=== PATIENT | male | born 1955 | race Caucasian/White ===

== ENCOUNTER → 2017-03-20 | Outpatient (CLI) | payer BC ==
[~2017-03-20] MED LIST: ASPI1TAB83 PO; CHOL100010 PO; HYDUNK PO; LSN20 PO; MULT-506 PO; WARF2TAB PO
== END | disposition home or self-care (01) ==
LOC: C.RDSM 12:21
PROVIDERS: ATTEND Physical Medicine & Rehabilitation Sports Medicine
DX: Z96.651 Presence of right artificial knee joint (principal); M16.9 Osteoarthritis of hip, unspecified

== ENCOUNTER 2019-01-25 06:02 | Inpatient (IN) ==
[2019-01-25] MEDS ORDERED: METOPROLOL TARTRATE 1 MG/ML VIAL IV STA (06:46)
--- NOTE | 2019-01-25 06:55 | Emergency Department Note ---
Entered by Dylan Canales acting as a scribe for Ritchie Ulloa DO History of Present Illness General Chief complaint: Vertigo Stated complaint: DIZZY Time Seen by Provider: 01/25/19 06:29 Source: patient History of Present Illness Provider complaint: Chest pain Onset (ago): hour(s) (This morning) Location: chest Radiation: non-radiation Pain Consistency: + constant Maximum Pain Intensity: 4 Current Pain Intensity: 4 Quality: + other (Pressure) Relieved By: + none Exacerbated By: + none Associated symptoms: + other (Positive fatigue ); no shortness of breath The patient is a 63 year old male who presents to the Emergency Room with complaints of constant chest pressure that he first noticed this morning just prior to arrival. The patient describes his symptoms as a pressure and rates it a 4/10. 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 While out in the direct sunlight, he experienced intermittent episodes of severe fatigue where he felt a drastic decrease in energy. He states that he had to sit down in the shade during these episodes but after doing so for a few minutes he felt normal again. The patient denies any shortness of breath as well as feeling as if his heart is beating irregularly. He does have a history of hypertension for which he takes Lisinopril and Hydrochlorothiazide. Home Medications Home Medications Medication Instructions Recorded Confirmed Type aspirin 81 mg PO QAM 07/04/18 01/25/19 History hydrochlorothiazide 25 mg PO QAM 07/04/18 01/25/19 History lisinopril 20 mg PO QAM 07/04/18 01/25/19 History multivitamin 1 tab PO QAM 07/04/18 01/25/19 History Allergies Allergy/AdvReac Type Severity Reaction Status Date / Time No Known Allergies Allergy Unknown Verified 01/25/19 06:28 Past Med/Surg History Medical History Hypertension Osteoarthritis Surgical History History of anesthesia reaction TACHYCARDIA History of carpal tunnel release BL History of colonoscopy History of elbow surgery History of herniorrhaphy UMBILICAL History of repair of rotator cuff History of tonsillectomy History of total hip arthroplasty RT History of total knee replacement BL Hx of vasectomy S/P cataract extraction and insertion of intraocular lens Left: 2mg of versed was given without apparent complications Social History Preferred Language: Liberian Communication Ability: Effective Beliefs That Will Affect Care: None Current Living Situation: Spouse Feels Safe at Home: Yes Smoking Status: Never smoker Second Hand Exposure: No Hx Alcohol Use: No Hx Substance Use: No Review of Systems See HPI for pertinent positives & negatives. and A total of 10 systems reviewed and were otherwise negative Physical Exam Vital Signs Vital Signs - 24 hr 01/25/19 06:05 01/25/19 06:20 01/25/19 06:46 Temperature 36.5 C Temperature Source Oral Sepsis Recent Fever Within 48 Hours No Sepsis New/Unexplained Change in Mental Status No Sepsis Action Taken by Nursing No Action Required Pulse Rate 91 H Pulse Rate [Apical] Pulse Rhythm [Apical] Pulse Strength [Apical] Respiratory Rate 16 Respiratory Depth Blood Pressure 149/69 H Blood Pressure [Right Arm] Blood Pressure Mean 95 Blood Pressure Mean [Right Arm] Blood Pressure Position [Right Arm] Pulse Oximetry 98 98 97 Oxygen Delivery Method Room Air Room Air Room Air 01/25/19 07:00 01/25/19 07:04 01/25/19 07:16 Temperature Temperature Source Sepsis Recent Fever Within 48 Hours Sepsis New/Unexplained Change in Mental Status Sepsis Action Taken by Nursing Pulse Rate 96 H Pulse Rate [Apical] 90 Pulse Rhythm [Apical] Irregular Pulse Strength [Apical] Normal Respiratory Rate 19 Respiratory Depth Normal Blood Pressure 131/88 Blood Pressure [Right Arm] 131/88 Blood Pressure Mean Blood Pressure Mean [Right Arm] 102 Blood Pressure Position [Right Arm] Lying Pulse Oximetry 95 97 Oxygen Delivery Method Room Air Room Air CONSTITUTIONAL/VITAL SIGNS: Reviewed / noted above. GENERAL: Non-toxic in appearance. INTEGUMENTARY: Warm, dry, and [place]. HEAD: Normocephalic. EYES: without scleral icterus or trauma. ENT/OROPHARYNX: clear and moist. LYMPHADENOPATHY/NECK: Is supple without lymphadenopathy or meningismus. RESPIRATORY: Lungs clear and equal. CARDIOVASCULAR: Regular rate and irregular rhythm. GI/ABDOMEN: Soft and nontender. No organomegaly or pulsatile mass. No rebound or guarding. Normal bowel sounds. EXTREMITIES: Warm and well perfused. BACK: No CVA tenderness. NEUROLOGICAL: Intact without focal deficits. PSYCHIATRIC: normal affect. MUSCULOSKELETAL: Normally developed with good muscle tone. Course 0642: The patient was evaluated in room A02, and a complete history and physical examination were performed. 0725: I reevaluated the patient and updated him on results. I also updated him on the treatment plan and he is agreeable. 0728: I spoke to Lakeisha Freeman PA-C, under Dr. Momo Lynch, about the patient's case. They will be accepting the patient. Consultations Consultation #1: I spoke to Lakeisha Freeman PA-C, under Dr. Momo Lynch, about the patient's case. They will be accepting the patient. Time: 07:28 Administered Medications Heparin Sodium/Dextrose (Heparin Sodium/Dextrose) 25,000 units in 500 mls @ 35 mls/hr IV .[id number] [facility]; Protocol Stop: 02/24/19 07:44 Last Admin: 01/25/19 07:39 Dose: 1,750 units/hr, 35 mls/hr Documented by: [id number] Cosigned by: [id number] Discontinued Medications Aspirin (Aspirin) 324 mg PO NOW STA Stop: 01/25/19 07:25 Last Admin: 01/25/19 07:38 Dose: 324 mg Documented by: [id number] Aspirin (Aspirin Chew) Confirm Administered Dose 324 mg .ROUTE .STK-MED ONE Stop: 01/25/19 07:35 Last Admin: 01/25/19 07:50 Dose: Not Given Documented by: [id number] Heparin Sodium (Porcine) (Heparin Iv Bolus) 8,000 units IV NOW ONE Stop: 01/25/19 07:46 Last Admin: 01/25/19 07:39 Dose: 8,000 units Documented by: [id number] Cosigned by: [id number] Heparin Sodium (Porcine) (Heparin Sodium (Porcine)) Confirm Administered Dose 1 0,000 units .ROUTE .STK-MED ONE Stop: 01/25/19 07:34 Last Admin: 01/25/19 07:50 Dose: Not Given Documented by: [id number] Heparin Sodium/Dextrose () 1 ea IV NOW STA; Protocol Stop: 01/25/19 07:25 Last Admin: 01/25/19 07:50 Dose: Not Given Documented by: [id number] Heparin Sodium/Dextrose (Heparin Sodium/Dextrose) Confirm Administered Dose 25,000 units IV .STK-MED ONE Stop: 01/25/19 07:34 Last Admin: 01/25/19 07:50 Dose: Not Given Documented by: [id number] Sodium Chloride (Nss) 500 mls @ 999 mls/hr IV .Q31M [place] Stop: 01/25/19 07:30 Last Infusion: 01/25/19 07:50 Dose: 0 mls/hr Documented by: [id number] Admin: 01/25/19 07:17 Dose: 999 mls/hr Documented by: [id number] Metoprolol Tartrate (Lopressor) 5 mg IV NOW STA Stop: 01/25/19 06:47 Last Admin: 01/25/19 07:16 Dose: 5 mg Documented by: [id number] Medical Decision Making Differential Diagnosis Differential diagnoses includes but is not limited to acute coronary syndrome, myocardial infarction, pericarditis, pulmonary embolus, aortic dissection, pneumonia, pneumothorax, musculoskeletal, shingles, esophageal. Medical Records Attestation: I reviewed the patient's medical records. Home Medications Current Medication List: was personally reviewed by me Laboratory Data Attestation: I reviewed the patient's lab results. Result diagrams: 01/25/19 06:20 01/25/19 06:20 Lab Results 01/25/19 01/25/19 01/25/19 Range/Units 06:20 06:20 06:20 WBC 6.52 (4.8-10.8) K/uL RBC 5.03 (4.7-6.1) M/uL Hgb 15.0 (14.0-18.0) g/dL Hct 42.3 (42-52) % MCV 84.1 (80-100) fL MCH 29.8 (25-34) pg MCHC 35.5 (32-36) g/dL RDW Std Deviation 42.8 (36.4-46.3) fL RDW Coeff of Shaq 14.0 (11.5-14.5) % Plt Count 167 (130-400) K/uL MPV 10.4 (7.4-10.4) fL Immature Gran % (Auto) 0.5 % Neut % (Auto) 63.8 % Lymph % (Auto) 23.2 % [place] % (Auto) 9.4 % Eos % (Auto) 2.8 % Baso % (Auto) 0.3 % Immature Gran # (Auto) 0.03 H (0.00-0.02) K/uL Neut # (Auto) 4.17 (1.4-6.5) K/uL Lymph # (Auto) 1.51 (1.2-3.4) K/uL [place] # (Auto) 0.61 H (0.11-0.59) K/uL Eos # (Auto) 0.18 (0-0.5) K/uL Baso # (Auto) 0.02 (0-0.2) K/uL PT 10.8 (9.0-12.0) Seconds INR 1.1 (0.9-1.1) APTT 28.6 (21.0-31.0) Seconds PTT Ratio 1.1 Sodium 138 (136-145) mmol/L Potassium 3.9 (3.5-5.1) mmol/L Chloride 103 (98-107) mmol/L Carbon Dioxide 25 (21-32) mmol/L Anion Gap 9.0 (3-11) BUN 21 H (7-18) mg/dl Creatinine 1.09 (0.6-1.4) mg/dl Est Cr Clr Drug Dosing 95.7 ml/min Est GFR ( Amer) 83.9 Est GFR (Non-Af Amer) 72.4 BUN/Creatinine Ratio 18.9 (10-20) Glucose 111 H (70-99) mg/dl Calcium 9.3 (8.5-10.1) mg/dl Total Bilirubin 0.8 (0.2-1) mg/dl AST 29 (15-37) U/L ALT 40 (12-78) U/L Alkaline Phosphatase 57 (45-117) U/L Total Creatine Kinase 632 H (39-308) U/L CK-MB (CK-2) 6.5 H (0.5-3.6) ng/ml CK/CKMB % Calc 1.0 (0-3.0) Troponin I 0.068 H* (0-0.045) ng/ml Total Protein 6.7 (6.4-8.2) gm/dl Albumin 3.9 (3.4-5.0) gm/dl Globulin 2.8 (2.5-4.0) gm/dl Albumin/Globulin Ratio 1.4 (0.9-2) TSH 1.280 (0.300-4.500) uIu/ml Lyme Disease IgG Ab (Negative) Lyme Disease IgM Ab (Negative) 01/25/19 Range/Units 06:20 WBC (4.8-10.8) K/uL RBC (4.7-6.1) M/uL Hgb (14.0-18.0) g/dL Hct (42-52) % MCV (80-100) fL MCH (25-34) pg MCHC (32-36) g/dL RDW Std Deviation (36.4-46.3) fL RDW Coeff of Shaq (11.5-14.5) % Plt Count (130-400) K/uL MPV (7.4-10.4) fL Immature Gran % (Auto) % Neut % (Auto) % Lymph % (Auto) % [place] % (Auto) % Eos % (Auto) % Baso % (Auto) % Immature Gran # (Auto) (0.00-0.02) K/uL Neut # (Auto) (1.4-6.5) K/uL Lymph # (Auto) (1.2-3.4) K/uL [place] # (Auto) (0.11-0.59) K/uL Eos # (Auto) (0-0.5) K/uL Baso # (Auto) (0-0.2) K/uL PT (9.0-12.0) Seconds INR (0.9-1.1) APTT (21.0-31.0) Seconds PTT Ratio Sodium (136-145) mmol/L Potassium (3.5-5.1) mmol/L Chloride (98-107) mmol/L Carbon Dioxide (21-32) mmol/L Anion Gap (3-11) BUN (7-18) mg/dl Creatinine (0.6-1.4) mg/dl Est Cr Clr Drug Dosing ml/min Est GFR ( Amer) Est GFR (Non-Af Amer) BUN/Creatinine Ratio (10-20) Glucose (70-99) mg/dl Calcium (8.5-10.1) mg/dl Total Bilirubin (0.2-1) mg/dl AST (15-37) U/L ALT (12-78) U/L Alkaline Phosphatase (45-117) U/L Total Creatine Kinase (39-308) U/L CK-MB (CK-2) (0.5-3.6) ng/ml CK/CKMB % Calc (0-3.0) Troponin I (0-0.045) ng/ml Total Protein (6.4-8.2) gm/dl Albumin (3.4-5.0) gm/dl Globulin (2.5-4.0) gm/dl Albumin/Globulin Ratio (0.9-2) TSH (0.300-4.500) uIu/ml Lyme Disease IgG Ab Negative (Negative) Lyme Disease IgM Ab Negative (Negative) Imaging Data Radiologist's Impression: Radiology results as stated below per my review and the radiologist's interpretation: XR chest 1V portable CLINICAL HISTORY: Chest Pain discussion COMPARISON STUDY: 05/22/2014 FINDINGS: Mild cardiomegaly. The lungs are clear. Diaphragms are smooth. IMPRESSION: Mild cardiomegaly. The above report was generated using voice recognition software. It may contain grammatical, syntax or spelling errors. Electronically signed by: Christian Chaney M.D. 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 The patient also describes some pressure in his chest this morning. He described as a light pressure. He states that he has been having some increased fatigue and tiredness worked in the heat. The patient denies any palpitations. He does take lisinopril and hydrochlorothiazide for hypertension. He denies having any history of A. fib. His initial EKG here reveals A. fib at a rate of 110. His blood pressure is stable and his vital signs are otherwise stable. He is afebrile. Physical exam was unremarkable other than the irre gular pulse. He is in no distress. The patient's EKG shows A. fib with a rate of 110. No ST elevation or ectopy. CBC is normal. BUN is 21. Troponin is elevated at 0.068. TSH was normal. Lyme test was pending. The patient was treated with IV Lopressor 5 mg. He was given 500 cc normal saline bolus. He was ordered aspirin p.o. and heparin IV with bolus and drip. I spoke with Lakeisha from [facility]. The patient will be admitted for further inpatient evaluation and care. The patient remained stable during his ED stay and was without any symptoms. Impression & Plan New onset a-fib, Non-ST elevation NC (NSTEMI), Acute dehydration Critical Care Time Critical Care Time: Yes Total Critical Care Time: 35 I have personally spent greater than 35 minutes of critical care time in the direct management of this patient. This includes bedside care, interpretation of diagnostic studies, and testing, discussion with consultants, patient, and family members, and other required patient management activities. This 35 minutes is in excess of all separately billable procedures. Discharge Plan Visit Data Chief Complaint: Vertigo Stated Complaint: DIZZY ED Provider: Ritchie Ulloa Discharge Problem: New onset a-fib, Non-ST elevation NC (NSTEMI), Acute dehydration Patient Disposition: Being Evaluated by Hospitalist Condition: Good Forms Stand Alone Forms: My [facility], Important Visit Information Prescriptions Prescriptions: No Action multivitamin Tablet 1 tab PO QAM RF: 0 lisinopril 20 mg Tablet 20 mg PO QAM RF: 0 aspirin 81 mg Tablet,Delayed Release (Dr/Ec) 81 mg PO QAM RF: 0 hydrochlorothiazide 25 mg Tablet 25 mg PO QAM RF: 0 Referrals Referrals: Christian Archer MD [Primary Care Provider] - The scribe's documentation has been prepared under my direction and personally reviewed by me in its entirety. I confirm that the note above accurately reflects all work, treatment, procedures, and medical decision making performed by me.
[2019-01-25 07:00] LABS: Basophils # (auto) 0.02 K/uL (0-0.2); Basophils % (auto) 0.3 %; Eosinophils # (auto) 0.18 K/uL (0-0.5); Eosinophils % (auto) 2.8 %; Hematocrit (blood only) 42.3 % (42-52); Immature Granulocytes # (auto) 0.03 K/uL (0.00-0.02); Immature Granulocytes % (auto) 0.5 %; Lymphocytes # (auto) 1.51 K/uL (1.2-3.4); Lymphocytes % (auto) 23.2 %; Mean Corpuscular Hgb Conc 35.5 g/dL (32-36); Mean Corpuscular Volume 84.1 fL (80-100); Mean Platelet Volume 10.4 fL (7.4-10.4); Monocytes # (auto) 0.61 K/uL (0.11-0.59); Monocytes % (auto) 9.4 %; Neutrophils # (auto) 4.17 K/uL (1.4-6.5); Neutrophils % (auto) 63.8 %; Platelet Count 167 K/uL (130-400); RDW Standard Deviation 42.8 fL (36.4-46.3); Red Blood Count 5.03 M/uL (4.7-6.1); White Blood Count 6.52 K/uL (4.8-10.8)
[2019-01-25] MEDS ORDERED: SODIUM CHLORIDE 0.9% 500 ML IV SCH (07:00)
[2019-01-25 07:07] LABS: Albumin Level 3.9 gm/dl (3.4-5.0); BUN Creatinine Ratio 18.9 (10-20); Calcium 9.3 mg/dl (8.5-10.1); Creatinine Clr Calc Pharmacy 95.7 ml/min; Est GFR (African American) 83.9; Est GFR (Non-African American) 72.4; Potassium 3.9 mmol/L (3.5-5.1)
[2019-01-25 07:13] LABS: INR 1.1 (0.9-1.1); Partial Thromboplastin Ratio 1.1; Partial Thromboplastin Time 28.6 Seconds (21.0-31.0); Prothrombin Time 10.8 Seconds (9.0-12.0)
[2019-01-25 07:19] LABS: Albumin Globulin Ratio 1.4 (0.9-2); Bilirubin,Total 0.8 mg/dl (0.2-1); Creatine Kinase MB 6.5 ng/ml (0.5-3.6); Globulin 2.8 gm/dl (2.5-4.0); Total Protein 6.7 gm/dl (6.4-8.2); Troponin I 0.068 ng/ml (0-0.045)
[2019-01-25] MEDS ORDERED: ASPIRIN CHEW 324 MG PO STA (07:24)
[2019-01-25 07:31] LABS: Lyme Ab IgG w/WB Rflx Negative (Negative); Lyme Ab IgM w/WB Rflx Negative (Negative)
[2019-01-25] MEDS ORDERED: HEPARIN SOD 5,000 UNIT/0.5 ML VIAL ONE (07:33)
[2019-01-25] MEDS ORDERED: HEPARIN 25000 UNIT/500 ML D5W IV ONE (07:33)
[2019-01-25] MEDS ORDERED: ASPIRIN 81 MG CHEW ONE (07:34)
--- NOTE | 2019-01-25 07:37 | XRay Report ---
XR chest 1V portable CLINICAL HISTORY: Chest Pain discussion COMPARISON STUDY: 05/22/2014 FINDINGS: Mild cardiomegaly. The lungs are clear. Diaphragms are smooth. IMPRESSION: Mild cardiomegaly. The above report was generated using voice recognition software. It may contain grammatical, syntax or spelling errors. Electronically signed by: Christian Chaney M.D. 01/25/2019 7:36 AM
[2019-01-25] MEDS: Heparin Adult STANDARD Wt-Based Dextrose 5% 25,000 units/500 mL IV SCH ×2 (07:39→20:55)
[2019-01-25] MEDS ORDERED: Heparin BOLUS **ED Use Only IV ONE (07:45)
--- NOTE | 2019-01-25 09:08 | History & Physical Report ---
Date of Service January 25, 2019 Assessment & Plan (1) New onset a-fib: (2) Non-ST elevation DC (NSTEMI): This is a 63-year-old male who has a significant past medical history of HTN, HLD, DJD who presents to [facility] ED secondary to episodes of profound lightheadedness and weakness since yesterday at 11 AM. is at bedside. In ED patient was found to be in atrial fibrillation with RVR, heart rate 110. His troponin was elevated to 0.068. There were no ST or T wave changes on EKG. CK-MB and CK also elevated at 632 and 6.5 respectively. His TSH was WNL. CBC relatively unremarkable. BMP was significant for elevated BUN 21, creatinine 1.09. Lyme titer negative. In ED received IVF bolus, IV Lopressor 5mg which improved HR to 90s and initiated on IV heparin bolus/gtt admit to telemetry consult Cardiology Serial troponin x 3 Obtain echocardiogram Continue IV Heparin Start Lopressor 25mg po bid IV Lopressor 5mg PRN for HR > 110 continue IVF for mild renal insufficiency (3) Acute dehydration: mild dehydration baseline cr 0.9 bun/cr 21/1.09 today IVF with 20meq KCL 125 cc/hr x 2 L Hold HCTZ follow bmp (4) Hypertension: continue lisinopril hold HCTZ in setting of mild dehydration DVT Prophylaxis: On IV Heparin Disposition: Discharge to home when able Follow up: PCP Dr. Archer upon discharge; along with appropriate cardiology follow up Patient and were educated regarding above assessment and treatment plan and they agree with above Patient was seen and examined in collaboration with Dr. Bryan, please see addendum History of Present Illness Chief Complaint: Profound lightheadedness and weakness off and on since yesterday at 11 AM. Primary Care Provider: Christian Archer MD This is a 63-year-old male who has a significant past medical history of HTN, HLD, DJD who presents to [facility] ED secondary to episodes of profound lightheadedness and weakness since yesterday at 11 AM. is at bedside. 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 He was out working in heat yesterday when at approximately 11 AM he developed profound lightheadedness, weakness which made him to rest and leaning up against a tree. Episode would last for approximately 5 minutes before relieving. When he would go back out in the sun symptoms recurred. He had numerous similar episodes between 11 and 2 PM. He describes lightheadedness as feeling as if he could pass out. witnessed events and states, "I have never seen him like this, I was working with him and I could do more than he could." During episodes he denies any chest pain or pressure, palpitations, syncope, dizziness, shortness of breath or BRUCE, nausea or diaphoresis. He elicits he was sweating but felt it was secondary to the heat. During events he was not exerting himself. Due to frequency of symptoms patient and opted to quit working, get something to eat and push Gatorade. After eating and drinking he felt much improved for the rest of the evening. When he woke up this morning he initially felt well until he had another episode of lightheadedness and weakness which prompted him to seek ED. Currently he is feeling much improved. Denies any fever, chills, sweats, hemoptysis, nausea, vomiting, diarrhea, change in bowel or urinary habits. Feels lately his appetite has been decreased. He tries to be conscious about his fluid intake with working outside. Prior to yesterday patient has been well with no recent illness. He is very active and works outside as a bathroom tiling professional. He did have a known tick bite appro ximately 3 weeks ago but has not noticed any rash or increased arthralgias. After tick bite his daughter who is ER doc who prescribed him 2 doses of prophylactic doxycycline. In ED patient was found to be in atrial fibrillation with RVR, heart rate 110. His troponin was elevated to 0.068. There were no ST or T wave changes on EKG. CK-MB and CK also elevated at 632 and 6.5 respectively. His TSH was WNL. CBC relatively unremarkable. BMP was significant for elevated BUN 21, creatinine 1.09. Lyme titer negative. Allergies Allergy/AdvReac Type Severity Reaction Status Date / Time No Known Allergies Allergy Unknown Verified 01/25/19 06:28 Home Medications Home Medications Medication Instructions Recorded Confirmed Type aspirin 81 mg PO QAM 07/04/18 01/25/19 History hydrochlorothiazide 25 mg PO QAM 07/04/18 01/25/19 History lisinopril 20 mg PO QAM 07/04/18 01/25/19 History multivitamin 1 tab PO QAM 07/04/18 01/25/19 History Past Med/Surg History Medical History Hypertension (Chronic) Osteoarthritis (Chronic) HLD (hyperlipidemia) (Chronic) Surgical History History of tonsillectomy (Chronic) History of colonoscopy (Chronic) Hx of vasectomy (Chronic) History of elbow surgery (Chronic) I and D History of anesthesia reaction (Chronic) TACHYCARDIA S/P cataract extraction and insertion of intraocular lens (Chronic) Left: 2mg of versed was given without apparent complications History of total bilateral knee replacement (TKR) (Chronic) History of total right hip replacement (Chronic) History of rotator cuff surgery (Chronic) History of decompression of ulnar nerve (Chronic) History of umbilical hernia repair (Chronic) Family History Father Atrial fibrillation Mother Breast cancer Social History Preferred Language: Setswana Communication Ability: Effective Beliefs That Will Affect Care: None Current Living Situation: Spouse 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[employer]; owns [employer], "[employer]" Other Information That Helps Us Care for You: No Feels Safe at Home: Yes Safety Concerns: Feels Safe At This Time Smoking Status: Never smoker Do You Dip or Chew Tobacco: No Second Hand Exposure: No Tobacco Cessation Education Requested by Patient: No Hx Alcohol Use: Yes Alcohol type: beer Hx Substance Use: No Review of Systems Review of Systems: As noted per HPI, 10 systems reviewed and negative unless noted above. Physical Exam Physical Exam: Gen: WD/WN, M, NAD, sitting up in bed, pleasant, conversing easily Head: Normocephalic, Atraumatic Eyes: Sclera normal, no conjunctival injection, PERRLA, EOMI ENT: Gross hearing intact, normal pharynx, mucous membranes moist Neck: supple, no adenopathy, No JVD, no bruit, Resp: Clear to auscultation b/l, no wheeze, rales, rhonchi. 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 strength Extremities: No edema bilaterally Skin: warm, moist, no rash, +negative turgor, cap refill < 2sec Neuro: Alert and oriented x 3, speech normal, good mood/affect, cran nerve 2-12 intact grossly : deferred Results & Data Vital Signs (Past 12 Hours) Vital Signs Temp Pulse Pulse Resp BP BP Pulse Ox 01/25/19 07:16 96 H 131/88 01/25/19 07:04 97 01/25/19 07:00 90 19 131/88 95 01/25/19 06:46 97 01/25/19 06:20 98 01/25/19 06:05 36.5 C 91 H 16 149/69 H 98 Laboratory Results Short CBC 01/25/19 01/25/19 Range/Units 06:20 06:20 WBC 6.52 (4.8-10.8) K/uL Hgb 15.0 (14.0-18.0) g/dL Hct 42.3 (42-52) % Plt Count 167 (130-400) K/uL Creatinine 1.09 (0.6-1.4) mg/dl BMP 01/25/19 06:20 Sodium 138 Potassium 3.9 Chloride 103 Carbon Dioxide 25 BUN 21 H Creatinine 1.09 Glucose 111 H Calcium 9.3 Cardiac Enzymes 01/25/19 Range/Units 06:20 Total Creatine Kinase 632 H (39-308) U/L CK-MB (CK-2) 6.5 H (0.5-3.6) ng/ml Troponin I 0.068 H* (0-0.045) ng/ml Liver Function 01/25/19 Range/Units 06:20 Total Bilirubin 0.8 (0.2-1) mg/dl AST 29 (15-37) U/L ALT 40 (12-78) U/L Alkaline Phosphatase 57 (45-117) U/L Albumin 3.9 (3.4-5.0) gm/dl Diagnostic Findings CXR: IMPRESSION: Mild cardiomegaly. Medications Administered Heparin Sodium/Dextrose (Heparin Sodium/Dextrose) 25,000 units in 500 mls @ 35 mls/hr IV .[id number] [facility]; Protocol Stop: 02/24/19 07:44 Last Titration: 01/25/19 09:09 Dose: 1,750 units/hr, 35 mls/hr Documented by: [id number] Cosigned by: [id number] Admin: 01/25/19 07:39 Dose: 1,750 units/hr, 35 mls/hr Documented by: [id number] Cosigned by: [id number] Discontinued Medications Aspirin (Aspirin) 324 mg PO NOW STA Stop: 01/25/19 07:25 Last Admin: 01/25/19 07:38 Dose: 324 mg Documented by: [id number] Aspirin (Aspirin Chew) Confirm Administered Dose 324 mg .ROUTE .STK-MED ONE Stop: 01/25/19 07:35 Last Admin: 01/25/19 07:50 Dose: Not Given Documented by: [id number] Heparin Sodium (Porcine) (Heparin Iv Bolus) 8,000 units IV NOW ONE Stop: 01/25/19 07:46 Last Admin: 01/25/19 07:39 Dose: 8,000 units Documented by: [id number] Cosigned by: [id number] Heparin Sodium (Porcine) (Heparin Sodium (Porcine)) Confirm Administered Dose 10,000 units .ROUTE .STK-MED ONE Stop: 01/25/19 07:34 Last Admin: 01/25/19 07:50 Dose: Not Given Documented by: [id number] Heparin Sodium/Dextrose () 1 ea IV NOW STA; Protocol Stop: 01/25/19 07:25 Last Admin: 01/25/19 07:50 Dose: Not Given Documented by: [id number] Heparin Sodium/Dextrose (Heparin Sodium/Dextrose) Confirm Administered Dose 25,000 units IV .STK-MED ONE Stop: 01/25/19 07:34 Last Admin: 01/25/19 07:50 Dose: Not Given Documented by: [id number] Sodium Chloride (Nss) 500 mls @ 999 mls/hr IV .Q31M [facility] Stop: 01/25/19 07:30 Last Infusion: 01/25/19 07:50 Dose: 0 mls/hr Documented by: [id number] Admin: 01/25/19 07:17 Dose: 999 mls/hr Documented by: [id number] Metoprolol Tartrate (Lopressor) 5 mg IV NOW STA Stop: 01/25/19 06:47 Last Admin: 01/25/19 07:16 Dose: 5 mg Documented by: [id number] ECG Rate (beats per minute): 110 Rhythm: atrial fibrillation Findings: + RBBB Code Status & VTE Plan Code Status Full Code VTE Prophylaxis Plan VTE Prophylaxis will be ordered: Yes Supervising Physician Co-Signing Physician Notes Attending addendum The patient was seen and examined in the telemetry unit He presented with a dizziness and weakness associated with some chest pressure which happened yesterday morning He was noted to have atrial fibrillation with RVR Denies any symptoms as of this morning On examination No apparent distress at rest Hemodynamically stable with tachycardia up around 100 Chest-clear to auscultate bilaterally Heart-S1-S2, irregular, no murmur appreciated Abdomen-benign Extremities-negative for any edema 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
[2019-01-25] MEDS ORDERED: POLYETHYLENE (MIRALAX) 17 GM PACK PO PRN (09:22)
[2019-01-25] MEDS ORDERED: MAGNESIUM HYDROXIDE SUSP 30 ML UDC PO PRN (09:22)
[2019-01-25] MEDS ORDERED: ONDANSETRON INJ 2 MG/ML 2 ML VIAL IV PRN (09:22)
[2019-01-25] MEDS ORDERED: ALUMINUM/MAGNESIUM SUSP 30 ML UDC PO PRN (09:22)
[2019-01-25] MEDS ORDERED: NITROGLYCERIN SL 0.4 MG/TAB TAB SL PRN (09:22)
[2019-01-25] MEDS ORDERED: METOPROLOL TARTRATE 1 MG/ML VIAL IV PRN (09:22)
[2019-01-25] MEDS ORDERED: ACETAMINOPHEN 325 MG TAB PO PRN (09:22)
[2019-01-25] MEDS ORDERED: Heparin Adult STANDARD Wt-Based Dextrose 5% 25,000 units/500 mL IV SCH (09:30)
[2019-01-25] MEDS ORDERED: PERFLUTREN LIPID MICROSPHERE (DEFINITY) IV ONE (09:38)
[2019-01-25] MEDS: METOPROLOL TARTRATE 25 MG TAB PO SCH ×2 (10:39→20:55)
[2019-01-25] MEDS: NSS + 20MEQ KCL 20 MEQ/1,000 ML BAG IV SCH ×2 (10:39→18:21)
[2019-01-25 14:13] LABS: Partial Thromboplastin Ratio 1.9
[2019-01-25 14:16] LABS: Partial Thromboplastin Time 50.5 Seconds (21.0-31.0)
[2019-01-25] MEDS ORDERED: Nursing to Pharmacy Communication ONE (15:15)
--- NOTE | 2019-01-25 15:15 | Cardiology Consultation ---
Date of Consultation January 25, 2019 Assessment & Plan (1) New onset a-fib: Patient presents with new onset atrial fibrillation possible 24 to 48 hours duration although potentially longer. Heart rate is slowed initially with metoprolol patient peripherally anticoagulated with heparin Note symptomatic complaints yesterday while working in high heat and sun. Chads vasc 2 score of 1 Recommendations: Continue IV heparin, give additional dose of oral metoprolol and maintain telemetry. Patient will likely require beta-donna in addition to usual antihypertensive regimen whether or not patient converts back to sinus (strong possibility). Echo shows LVH as well as mild to moderately dilated aortic root with preserved LV function Discussed all findings in detail with patient clinical course depending on rhythm over the next 24 hours. Would anticipate anticoagulation minimum of 1 month post discharge even a successful return to sinus (2) Hypertension: As above, may consider discontinuing hydrochlorothiazide on hold current (3) Elevated troponin: Troponins minimally elevated and flat. Echocardiogram demonstrates preserved LV function EKG with findings consistent hypertension and possible conduction disease Will need stress testing to further delineate unless significant evolution EKGs during hospital stay History of Present Illness Reason for Consultation: Atrial fibrillation newly observed Requesting Physician: Dr. Bryan Attending Physician: Aundrea Bryan MD History of Present Illness A 63-year-old male without prior history of cardiac disease carries underlying history of hypertension borderline hyperlipidemia. He has no prior history of diabetes mellitus, angina or ischemic heart disease, TIA or stroke, congestive heart failure. No documented history of atrial fibrillation personally. Father has a history of atrial fibrillation. Patient presents this admission noting an episode of tachypalpitations approximately 2 months ago during the time of stress. 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 This morning on awakening felt "not right" chest felt slightly heavy but no distinct chest pain notes no orthopnea PND or peripheral edema notes no tachypalpitations currently. No recent fevers chills infections. Fair amount of stress at home with disrupted sleep pattern. Appetite weighted been stable, no history of sleep apnea. No lower extremity edema or long travel Allergies Allergy/AdvReac Type Severity Reaction Status Date / Time No Known Allergies Allergy Unknown Verified 01/25/19 06:28 Home Medications Home Medications Medication Instructions Recorded Confirmed Type aspirin 81 mg PO QAM 07/04/18 01/25/19 History hydrochlorothiazide 25 mg PO QAM 07/04/18 01/25/19 History lisinopril 20 mg PO QAM 07/04/18 01/25/19 History multivitamin 1 tab PO QAM 07/04/18 01/25/19 History Patient History Medical History Hypertension (Chronic) Osteoarthritis (Chronic) HLD (hyperlipidemia) (Chronic) Surgical History History of tonsillectomy (Chronic) History of colonoscopy (Chronic) Hx of vasectomy (Chronic) History of elbow surgery (Chronic) I and D History of anesthesia reaction (Chronic) TACHYCARDIA S/P cataract extraction and insertion of intraocular lens (Chronic) Left: 2mg of versed was given without apparent complications History of total bilateral knee replacement (TKR) (Chronic) History of total right hip replacement (Chronic) History of rotator cuff surgery (Chronic) History of decompression of ulnar nerve (Chronic) History of umbilical hernia repair (Chronic) Family History Father Atrial fibrillation Mother Breast cancer Social History Preferred Language: Sierra Leonean Communication Ability: Effective Beliefs That Will Affect Care: None Current Living Situation: Spouse 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[employer]; 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[employer], "[employer]" Other Information That Helps Us Care for You: No Feels Safe at Home: Yes Safety Concerns: Feels Safe At This Time Smoking Status: Never smoker Do You Dip or Chew Tobacco: No Second Hand Exposure: No Tobacco Cessation Education Requested by Patient: No Hx Alcohol Use: Yes Alcohol type: beer Hx Substance Use: No Physical Exam Constitutional: WD/WN, vitals as above Eyes: PERRL, conjunctivae normal, anicteric sclerae ENMT: external ear and nose normal, oropharynx normal Neck: trachea midline, no thyromegaly + thick neck Respiratory: normal respiratory effort, lungs clear to auscultation Cardiovascular: Rate/Rhythm: + irregularly irregular Heart Sounds: normal S1 and normal S2; no gallop, no murmur and no cardiac rub Vessels: no JVD and no carotid bruit Extremities: no edema Gastrointestinal (Abdomen): normal bowel sounds, soft, nontender, no hepatosp lenomegaly Musculoskeletal: no cyanosis or clubbing, extremities motor strength 5/5 Neurologic: PERRL, EOMI, accommodation nl, no face palsy, no dysarthria Psychiatric: A+Ox3, euthymic affect Results & Data Vital Signs (Past 12 Hours) Vital Signs Temp Pulse Pulse Resp BP BP Pulse Ox 06/28/19 12:04 37.0 C 100 H 20 115/70 96 01/25/19 09:17 36.9 C 89 18 135/73 97 01/25/19 09:08 37.4 C 85 18 135/73 97 01/25/19 09:02 20 109/85 98 01/25/19 07:16 96 H 131/88 01/25/19 07:04 97 01/25/19 07:00 90 19 131/88 95 01/25/19 06:46 97 01/25/19 06:20 98 01/25/19 06:05 36.5 C 91 H 16 149/69 H 98 Laboratory Results Laboratory Results - last 24 hr 01/25/19 01/25/19 01/25/19 06:20 06:20 06:20 WBC 6.52 RBC 5.03 Hgb 15.0 Hct 42.3 MCV 84.1 MCH 29.8 MCHC 35.5 RDW Std Deviation 42.8 RDW Coeff of Shaq 14.0 Plt Count 167 MPV 10.4 Immature Gran % (Auto) 0.5 Neut % (Auto) 63.8 Lymph % (Auto) 23.2 Anson % (Auto) 9.4 Eos % (Auto) 2.8 Baso % (Auto) 0.3 Immature Gran # (Auto) 0.03 H Neut # (Auto) 4.17 Lymph # (Auto) 1.51 Anson # (Auto) 0.61 H Eos # (Auto) 0.18 Baso # (Auto) 0.02 PT 10.8 INR 1.1 APTT 28.6 PTT Ratio 1.1 Sodium 138 Potassium 3.9 Chloride 103 Carbon Dioxide 25 Anion Gap 9.0 BUN 21 H Creatinine 1.09 Est Cr Clr Drug Dosing 95.7 Est GFR ( Amer) 83.9 Est GFR (Non-Af Amer) 72.4 BUN/Creatinine Ratio 18.9 Glucose 111 H Calcium 9.3 Total Bilirubin 0.8 AST 29 ALT 40 Alkaline Phosphatase 57 Total Creatine Kinase 632 H CK-MB (CK-2) 6.5 H CK/CKMB % Calc 1.0 Troponin I 0.068 H* Total Protein 6.7 Albumin 3.9 Globulin 2.8 Albumin/Globulin Ratio 1.4 TSH 1.280 Lyme Disease IgG Ab Lyme Disease IgM Ab 01/25/19 01/25/19 01/25/19 06:20 12:06 13:38 WBC RBC Hgb Hct MCV MCH MCHC RDW Std Deviation RDW Coeff of Shaq Plt Count MPV Immature Gran % (Auto) Neut % (Auto) Lymph % (Auto) Anson % (Auto) Eos % (Auto) Baso % (Auto) Immature Gran # (Auto) Neut # (Auto) Lymph # (Auto) Anson # (Auto) Eos # (Auto) Baso # (Auto) PT INR APTT 50.5 H* PTT Ratio 1.9 Sodium Potassium Chloride Carbon Dioxide Anion Gap BUN Creatinine Est Cr Clr Drug Dosing Est GFR ( Amer) Est GFR (Non-Af Amer) BUN/Creatinine Ratio Glucose Calcium Total Bilirubin AST ALT Alkaline Phosphatase Total Creatine Kinase CK-MB (CK-2) CK/CKMB % Calc Troponin I 0.054 H* Total Protein Albumin Globulin Albumin/Globulin Ratio TSH Lyme Disease IgG Ab Negative Lyme Disease IgM Ab Negative Diagnostic Findings Echocardiogram performed today 01/25/2019 Normal hyperdynamic LV function EF 65 to 70% without wall motion abnormality. There is moderate left hypertrophy with mild asymmetry of the septum. The aortic root is mild to moderately enlarged ECG Additional Comments: 25-JAN-2019 06:14:06 [facility]-EDSTAT ROUTINE RETRIEVAL Atrial fibrillation with rapid ventricular response Incomplete right bundle branch block Left anterior fascicular block Abnormal ECG When compared with ECG of 29-APR-2016 14:12, Atrial fibrillation has replaced Sinus rhythm Incomplete right bundle branch block is now Present Confirmed by Estuardo Oliver [id number] on 01/25/2019 12:05:10 PM 25mm/s 10mm/mV 150Hz 9.0.8 12SL 241 CHELA: 10 Referr
[2019-01-25] MEDS ORDERED: METOPROLOL TARTRATE 25 MG TAB PO STA (15:26)
[2019-01-26 05:51] LABS: Basophils # (auto) 0.01 K/uL (0-0.2); Basophils % (auto) 0.2 %; Eosinophils # (auto) 0.14 K/uL (0-0.5); Eosinophils % (auto) 2.6 %; Hematocrit (blood only) 40.4 % (42-52); Hemoglobin 14.2 g/dL (14.0-18.0); Immature Granulocytes # (auto) 0.01 K/uL (0.00-0.02); Immature Granulocytes % (auto) 0.2 %; Lymphocytes % (auto) 33.8 %; Mean Corpuscular Hgb Conc 35.1 g/dL (32-36); Mean Corpuscular Volume 86.3 fL (80-100); Monocytes # (auto) 0.43 K/uL (0.11-0.59); Monocytes % (auto) 8.1 %; Neutrophils # (auto) 2.94 K/uL (1.4-6.5); Neutrophils % (auto) 55.1 %; Platelet Count 155 K/uL (130-400); RDW Coefficient of Variation 14.3 % (11.5-14.5); RDW Standard Deviation 44.4 fL (36.4-46.3); Red Blood Count 4.68 M/uL (4.7-6.1); White Blood Count 5.33 K/uL (4.8-10.8)
[2019-01-26 06:22] LABS: Partial Thromboplastin Ratio 1.7
[2019-01-26 06:38] LABS: BUN Creatinine Ratio 16.7 (10-20); Calcium 8.9 mg/dl (8.5-10.1); Creatinine Clr Calc Pharmacy 130.3 ml/min; Est GFR (Non-African American) 95.7; Potassium 4.3 mmol/L (3.5-5.1)
[2019-01-26 06:59] LABS: Partial Thromboplastin Time 46.5 Seconds (21.0-31.0)
[2019-01-26 07:41] LABS: Estimated Average Glucose 114 mg/dl; Hemoglobin A1C 5.6 % (4.5-5.6)
[2019-01-26] MEDS: METOPROLOL TARTRATE 25 MG TAB PO SCH ×2 (08:14→20:43)
[2019-01-26] MEDS ORDERED: dilTIAZem HCl 5 MG/ML 5 ML VIAL IV STA (10:11)
[2019-01-26] MEDS ORDERED: METOPROLOL TARTRATE 25 MG TAB PO SCH (10:15)
[2019-01-26] MEDS: dilTIAZem HCl 125 MG in DEXTROSE 5% 100 ML IV SCH (11:01)
[2019-01-26] MEDS: Heparin Adult STANDARD Wt-Based Dextrose 5% 25,000 units/500 mL IV SCH (11:06)
--- NOTE | 2019-01-26 11:45 | Hospitalist Progress Note ---
Date of Service January 26, 2019 Assessment & Plan (1) New onset a-fib: Present on admission with lightheadedness and weakness was found to be in Afib with RVR HR has been in the 120's Received IV lopressor in the ER Cardizem 10mgx1 IV given today and starting on cardizem drip Continue IV heparin drip Case discussed with cardiology and plan for DEMARIO and cardioversion if pt remains in Afib Continue metoprolol 25 mg BI Continue monitor in telemetry (2) Acute dehydration: Creatinine on admission 1.09 Received IVF Creatinine improves to 0.8 today Monitor BMP (3) Elevated troponin: Troponin on admission 0.068 Possible related to demand ischemia due to Afib Troponin trending down to 0.047 EKG showed no ischemic changes ECHO showed no wall motion abnormality with EF btw 65-70% (4) Hypertension: BP stable Continue Lisinopril and metoprolol Will d/c HCTZ on discharge DVT Prophylaxis: On IV Heparin Disposition: Discharge to home when able Follow up: PCP Dr. Archer upon discharge; along with appropriate cardiology follow up Subjective Pt was seen and examined Lying in bed with no distress with at bedside Pt said that he feels fine He said that he doesn't have any chest pain, palpitation and SOB Physical Exam Physical Exam: General- No acute distress Head- atraumatic Eyes- PERRL, EOMI, ENT- oropharynx clear Neck- supple, no JVD Lungs- clear to auscultation Heart- irregular rhythm, +tachycardia Abdomen- normal bowel sounds, soft, nontender Extremities- no calf tenderness Neuro- alert, oriented x 3; PERRL, EOMI; no facial palsy; no dysarthria Skin- warm & dry Results & Data Vital Signs (Past 12 Hours) Vital Signs Temp Pulse Resp BP Pulse Ox 01/26/19 11:33 37 C 78 18 122/78 96 01/26/19 07:26 36.7 C 94 H 20 135/85 98 01/26/19 03:27 36.7 C 87 20 130/87 97
--- NOTE | 2019-01-26 13:43 | Cardiology Progress Note ---
Date of Service January 26, 2019 Assessment & Plan (1) New onset a-fib: feeling better now with greater rate control tolerating heparin without issue pathophysiology and treatment options discussed with patient and family my hope is that he will spontaneously convert on his own cont metoprolol bid along with cardizem gtt if does not convert, will perform DEMARIO guided cardioversion on Monday in terms of anticoagulation, will start Eliquis 5mg po bid this evening, will d/c heparin 1 hour after first dose (2) Hypertension: well controlled since starting metoprolol would not restart HCTZ cont to hold lisinopril for now (3) Elevated troponin: Troponins minimally elevated and flat. Echocardiogram demonstrates preserved LV function EKG with findings consistent hypertension and possible conduction disease will perform outpatient nuclear stress test to complete work up as an outpatient Subjective Pt seen and examined, and sister at bedside, states that he's feeling much better since cardizem gtt started this AM. Funny feeling in his chest has resolved. Otherwise, denies cp, sob, palpitations, lightheadedness or dizziness. tele reviewed: afib, now rate controlled in 's Review of Systems Review of Systems: All systems reviewed & are unremarkable except as noted in HPI & below Physical Exam Physical Exam: General: Awake, alert and oriented x 3. No acute distress. HEENT: Normocephalic, atraumatic. Pupils equal, round and reactive to light and accommodation. Extraocular muscles are intact. Anicteric sclera. Moist mucous membranes. Neck: No JVD. No bruit. Cardiovascular: irregularly irregular, unable to appreciate murmur, rub or gallop. Pulmonary: Clear to auscultation bilaterally. No rales, rhonchi, or wheezing. Abdomen: Bowel sounds x 4, soft. No rebound, guarding or tenderness. No organomegaly. Extremities: No clubbing, cyanosis or edema. +2 pedal pulses bilaterally. Skin: Warm and dry. Results & Data Vital Signs (Past 12 Hours) Vital Signs Temp Pulse Resp BP Pulse Ox 01/26/19 11:33 37 C 78 18 122/78 96 01/26/19 07:26 36.7 C 94 H 20 135/85 98 01/26/19 03:27 36.7 C 87 20 130/87 97
[2019-01-26] MEDS: APIXABAN 5 MG TABLET PO SCH (20:44)
[2019-01-27] MEDS ORDERED: METOPROLOL TARTRATE 25 MG TAB PO STA (08:14)
[2019-01-27] MEDS: APIXABAN 5 MG TABLET PO SCH ×2 (08:48→21:11)
[2019-01-27] MEDS: METOPROLOL TARTRATE 25 MG TAB PO SCH (08:49)
--- NOTE | 2019-01-27 12:22 | Cardiology Progress Note ---
Date of Service January 27, 2019 Assessment & Plan (1) New onset a-fib: feeling better now with greater rate control rates dipped overnight on cardizem gtt, gtt appropriately stopped but with increased rates this AM increased metoprolol to 50mg po bid, rates improved plan for DEMARIO guided cardioversion in AM should he not spontaneously convert to sinus on his own patient and family voice agreement and understanding of plan cont Eliquis npo after midnight (2) Hypertension: well controlled since starting metoprolol would not restart HCTZ cont to hold lisinopril for now (3) Elevated troponin: Troponins minimally elevated and flat. Echocardiogram demonstrates preserved LV function EKG with findings consistent hypertension and possible conduction disease will perform outpatient nuclear stress test to complete work up as an outpatient Subjective Pt seen and examined, with and son at bedside. States that he feels better than admission but still not quite right. Some palpitations but denies cp, sob, lightheadedness or dizziness. tele reviewed: atrial fibrillation with variable rate control Review of Systems Review of Systems: All systems reviewed & are unremarkable except as noted in HPI & below Physical Exam Physical Exam: General: Awake, alert and oriented x 3. No acute distress. HEENT: Normocephalic, atraumatic. Pupils equal, round and reactive to light and accommodation. Extraocular muscles are intact. Anicteric sclera. Moist mucous membranes. Neck: No JVD. No bruit. Cardiovascular: irregularly irregular, unable to appreciate murmur, rub or gallop. Pulmonary: Clear to auscultation bilaterally. No rales, rhonchi, or wheezing. Abdomen: Bowel sounds x 4, soft. No rebound, guarding or tenderness. No organomegaly. Extremities: No clubbing, cyanosis or edema. +2 pedal pulses bilaterally. Skin: Warm and dry. Results & Data Vital Signs (Past 12 Hours) Vital Signs Temp Pulse Pulse Resp BP Pulse Ox 01/27/19 11:19 36.5 C 94 H 18 111/78 97 01/27/19 09:00 92 H 01/27/19 07:31 36.9 C 66 20 149/87 H 99 01/27/19 03:08 36.6 C 68 19 120/72 97
[2019-01-27] MEDS: METOPROLOL TARTRATE 50 MG TAB PO SCH ×2 (13:50→21:12)
--- NOTE | 2019-01-27 14:55 | Hospitalist Progress Note ---
Date of Service January 27, 2019 Assessment & Plan (1) New onset a-fib: Present on admission with lightheadedness and weakness was found to be in Afib with RVR Received IV lopressor in the ER Cardizem 10mgx1 IV given today and starting on cardizem drip Rate controlled with Cardizem drip IV heparin drip discontinued Starting on eliquis Case discussed with cardiology plan for DEMARIO and cardioversion if pt remains in Afib in the morning Metoprolol increased to 50 mg BID Will make NPO after midnight Continue monitor in telemetry (2) Acute dehydration: Creatinine on admission 1.09 Received IVF Creatinine improves to 0.8 Monitor BMP Stable (3) Elevated troponin: Troponin on admission 0.068 Possible related to demand ischemia due to Afib Troponin trending down to 0.047 EKG showed no ischemic changes ECHO showed no wall motion abnormality with EF btw 65-70% (4) Hypertension: BP stable Continue Lisinopril and metoprolol Will d/c HCTZ on discharge DVT Prophylaxis: On IV Heparin discontinued On Eliquis Disposition: Discharge to home when able Follow up: PCP Dr. Archer upon discharge; along with appropriate cardiology follow up Subjective Pt was seen and examined Sitting in chair with no distress Pt said that he feels fine denies any chest pain, palpitation, dizziness, hematuria and SOB Physical Exam Physical Exam: General- No acute distress Head- atraumatic Eyes- PERRL, EOMI, ENT- oropharynx clear Neck- supple, no JVD Lungs- clear to auscultation Heart- irregular rhythm, +tachycardia Abdomen- normal bowel sounds, soft, nontender Extremities- no calf tenderness Neuro- alert, oriented x 3; PERRL, EOMI; no facial palsy; no dysarthria Skin- warm & dry Results & Data Vital Signs (Past 12 Hours) Vital Signs Temp Pulse Pulse Resp BP Pulse Ox 01/27/19 11:19 36.5 C 94 H 18 111/78 97 01/27/19 09:00 92 H 01/27/19 07:31 36.9 C 66 20 149/87 H 99 01/27/19 03:08 36.6 C 68 19 120/72 97
[2019-01-27] MEDS: dilTIAZem HCl 125 MG in DEXTROSE 5% 100 ML IV SCH (21:11)
[2019-01-28 06:36] LABS: Hematocrit (blood only) 45.7 % (42-52); Hemoglobin 15.8 g/dL (14.0-18.0); Mean Corpuscular Hgb Conc 34.6 g/dL (32-36); Mean Corpuscular Volume 86.4 fL (80-100); Mean Platelet Volume 10.2 fL (7.4-10.4); Platelet Count 182 K/uL (130-400); RDW Coefficient of Variation 14.2 % (11.5-14.5); Red Blood Count 5.29 M/uL (4.7-6.1); White Blood Count 6.02 K/uL (4.8-10.8)
[2019-01-28 07:11] LABS: BUN Creatinine Ratio 13.5 (10-20); Calcium 9.3 mg/dl (8.5-10.1); Creatinine Clr Calc Pharmacy 123.2 ml/min; Est GFR (African American) 108.8; Est GFR (Non-African American) 93.8; Potassium 4.2 mmol/L (3.5-5.1)
[2019-01-28] MEDS ORDERED: MIDAZOLAM HCL 1 MG/ML 2ML VIAL ONE (08:07)
[2019-01-28] MEDS ORDERED: fentaNYL citrate 100 MCG/2 ML VIAL ONE ×2 (08:07)
[2019-01-28] MEDS ORDERED: BENZOCAIN/TETRACA/BUTAM SPRAY 200 APPLN/20 GM SPRY EXT ONE (08:43)
--- NOTE | 2019-01-28 09:07 | Pre Anesthesia Assessment ---
Date of Service January 28, 2019 Pre Sedation Assessment Vital Signs Temp Pulse Pulse Resp BP Pulse Ox 01/28/19 09:00 105 H 20 98/78 L 100 01/28/19 08:55 98 H 20 117/68 99 01/28/19 08:50 108 H 20 119/81 99 01/28/19 07:08 36.4 C L 75 16 145/86 H 95 01/28/19 03:19 36.6 C 75 16 139/90 99 01/27/19 23:18 36.6 C 68 18 127/76 98 01/27/19 23:06 85 01/27/19 19:32 36.5 C 95 H 18 157/89 H 97 01/27/19 15:57 36.8 C 63 18 120/78 97 01/27/19 15:00 88 01/27/19 11:19 36.5 C 94 H 18 111/78 97 Pre-Sedation Airway Assessment Smoking Status: Never smoker Short, Thick Neck: No Thyromental Distance: > or= 3.5 Finger Breadths Oral Cavity: + WNL Mallampati Class: III ASA: ASA3 Notes The planned sedation has been discussed with the patient. Informed Consent was obtained. I have identified the patient, determined the appropriateness of sedation and have assessed the patient immediately prior to the procedure. All medicine(s) and interventions are by my order.
--- NOTE | 2019-01-28 09:07 | Post Anesthesia Assessment ---
Date of Service January 28, 2019 Post Sedation Assessment Vital Signs Temp Pulse Pulse Resp BP Pulse Ox 01/28/19 09:00 105 H 20 98/78 L 100 01/28/19 08:55 98 H 20 117/68 99 01/28/19 08:50 108 H 20 119/81 99 01/28/19 07:08 36.4 C L 75 16 145/86 H 95 01/28/19 03:19 36.6 C 75 16 139/90 99 01/27/19 23:18 36.6 C 68 18 127/76 98 01/27/19 23:06 85 01/27/19 19:32 36.5 C 95 H 18 157/89 H 97 01/27/19 15:57 36.8 C 63 18 120/78 97 01/27/19 15:00 88 01/27/19 11:19 36.5 C 94 H 18 111/78 97 Recovery Score Activity: Moves 2 extremities Respiration: Deep Breath/Cough Circulation: +/-20% PreAnes Value Consciousness: Arouseable (by name) Oxygen Saturation: O2 needed for >90% Post Anesthesia Score: 7 Post Sedation Plan On clinical assessment, the patient appears to have tolerated the sedation without complications. Patient is recovering as anticipated. Patient will continue to be monitored by nursing and may be discharged when sedation discharge criteria are met per below protocol. Upon Completions of procedure and additional 15 minutes continue every 5 minute vital signs and the P.A.R. score; then discharge to a Phase I or Fast Track to Phase II per the following guidelines: * Discharge Patient to appropriate Phase II area if PAR is 8 or greater or return to pre- procedure baseline. The post - procedure orders will be as directed. * If PAR score is less than 8 or not return to pre-procedure baseline then patient will follow Phase I monitoring till PAR is reached for Phase II. The Phase I may be done in procedure room or may call to secure a Phase I area. * If naloxone or flumazenil are used for reversal, hold in Phase I for continued monitoring from when last reversal dose was given for a minimum of 60 minutes or longer pending the nurse and/or physician discretion of patient condition before discharge to Phase II. Please call the Sedation Physician to re-evaluate and complete post-note for discharge to Phase II area. Do NOT discharge from procedure sedation or Phase 1 until post- sedation evaluation note is complete by procedure /sedation MD Sedation Discharge Instructions to be given to the patient at discharge to home.
--- NOTE | 2019-01-28 09:07 | History & Physical Bridge Note ---
Date of Service January 28, 2019 History & Physical Bridge Note I have examined the patient, reviewed the History & Physical and in the interval since the performance of the History & Physical I have noted the following changes of clinical significance: no changes noted
--- NOTE | 2019-01-28 09:16 | Operative Report ---
Post Operative Report Pre & Post Diagnosis Operation Date: 01/28/19 08:00 <No data on this case meets the specified criteria> Procedure Operation Date: 01/28/19 08:00 Actual Procedures p Cardioversion - Steffen Hdez DO Informed consent obtained Pt prepped Conscious sedation achieved with Versed 4mg and Fentanyl 100mcg DEMARIO performed: unremarkable No left atrial appendage thrombus DEMARIO completed Pt repositioned additional Versed 1mg and Fentanyl 50mcg given 300J of synchronized energy delivered with successful cardioversion to sinus rhythm pt tolerated well to be recovered per protocol family updated start time:851 stop time: 902 Surgeon Steffen Hdez DO Nursing Home Administrator none Estimated Blood Loss 0 Findings Consistent with Post-Op Diagnosis Specimens none Description of Procedure DEMARIO guided cardioversion I attest to the content of the Intraoperative Record and any orders documented therein. Any exceptions are noted below.
[2019-01-28] MEDS ORDERED: METOPROLOL SUCC 50MG EXT REL TAB PO SCH (10:15)
--- NOTE | 2019-01-28 10:36 | Hospitalist Progress Note ---
Date of Service January 28, 2019 Assessment & Plan (1) New onset a-fib: Present on admission with lightheadedness and weakness was found to be in Afib with RVR Received IV lopressor in the ER Cardizem 10mgx1 IV given today and starting on cardizem drip Rate controlled with Cardizem drip IV heparin drip discontinued and started on eliquis Appreciate cardiology input and recommendation Metoprolol increased to 50 mg BID Status post elective cardioversion this morning He reverted to sinus rhythm and denies any cardiac symptoms Has been ambulating in the hallway Will discharge him this afternoon (2) Acute dehydration: Creatinine on admission 1.09 Received IVF Creatinine improves to 0.8 Monitor BMP Stable (3) Elevated troponin: Troponin on admission 0.068 Possible related to demand ischemia due to Afib Troponin trending down to 0.047 EKG showed no ischemic changes ECHO showed no wall motion abnormality with EF btw 65-70% (4) Hypertension: BP stable Continue Lisinopril and metoprolol Will d/c HCTZ on discharge He does not want to continue with valsartan Discussed with engineer technical staff and will be given valsartan on discharge DVT Prophylaxis: On IV Heparin discontinued On Eliquis Disposition: Discharge to home when able Follow up: PCP Dr. Archer upon discharge; along with appropriate cardiology follow up Subjective 01/28 The patient was seen and examined in telemetry unit This is a 63-year-old male who has a significant past medical history of HTN, HLD, DJD who presents to [facility] ED secondary to episodes of profound lightheadedness and weakness since before the day of admission at 11 AM and noted to have atrial fibrillation with RVR He is a status post cardioversion today Back to sinus rhythm following that Denies any symptoms as of today and wants to go home Review of Systems Review of Systems: All systems reviewed and are unremarkable except as noted below Cardiovascular: no chest pain, no chest pain at rest, no palpitations and no lightheadedness Physical Exam Physical Exam: No apparent distress at rest Constitutional: well developed and well nourished; no acute distress Eyes: PERRL, conjunctivae normal, anicteric sclerae ENMT: external ear and nose normal, oropharynx normal Neck: trachea midline, no thyromegaly Respiratory: normal respiratory effort Auscultation: lungs clear to auscultation bilaterally Cardiovascular: Rate/Rhythm: regular rate and regular rhythm Heart Sounds: no murmur Gastrointestinal (Abdomen): Inspection/Auscultation: abdomen normal to inspection and normal bowel sounds Percussion/Palpation: abdomen soft Musculoskeletal: No acute arthritis in any of the joints Neurologic: PERRL, EOMI, accommodation nl, no face palsy, no dysarthria Psychiatric: A+Ox3, euthymic affect Lymphatic: no cervical or axillary lymphadenopathy Results & Data Vital Signs (Past 12 Hours) Vital Signs Temp Pulse Pulse Resp BP BP Pulse Ox 01/28/19 09:42 72 01/28/19 09:25 36.8 C 72 18 119/80 94 01/28/19 09:00 105 H 20 98/78 L 100 01/28/19 08:55 98 H 20 117/68 99 01/28/19 08:50 108 H 20 119/81 99 01/28/19 07:08 36.4 C L 75 16 145/86 H 95 01/28/19 03:19 36.6 C 75 16 139/90 99 01/27/19 23:18 36.6 C 68 18 127/76 98 01/27/19 23:06 85 Laboratory Results Short CBC 01/28/19 Range/Units 06:00 WBC 6.02 (4.8-10.8) K/uL Hgb 15.8 (14.0-18.0) g/dL Hct 45.7 (42-52) % Plt Count 182 (130-400) K/uL BMP 01/28/19 06:00 Sodium 139 Potassium 4.2 Chloride 104 Carbon Dioxide 32 BUN 11 Creatinine 0.84 Glucose 97 Calcium 9.3 Medications Administered Current Inpatient Medications Acetaminophen (Tylenol) 650 mg PO Q4H PRN PRN Reason: Pain or Fever Stop: 02/24/19 09:21 Al Hydrox/Mg Hydrox/Simethicone (Maalox) 15 ml PO Q4H PRN PRN Reason: Dyspepsia Stop: 02/24/19 09:21 Apixaban (Eliquis) 5 mg PO BID [place] Stop: 02/25/19 20:59 Last Admin: 01/27/19 21:11 Dose: 5 mg Documented by: Magnesium Hydroxide (Milk Of Magnesia) 30 ml PO Q12H PRN PRN Reason: Constipation Stop: 02/24/19 09:21 Metoprolol Succinate (Toprol Xl) 50 mg PO [place] Stop: 02/27/19 10:14 Metoprolol Tartrate (Lopressor) 5 mg IV Q6 PRN PRN Reason: Tachycardia Stop: 02/24/19 09:21 Last Admin: 01/25/19 12:21 Dose: 5 mg Documented by: Nitroglycerin (Nitrostat) 0.4 mg SL UD PRN PRN Reason: Chest Pain Stop: 02/24/19 09:21 Ondansetron HCl (Zofran) 4 mg IV Q6H PRN PRN Reason: Nausea Stop: 02/24/19 09:21 Polyethylene Glycol (Miralax Powder Packet) 17 gm PO DAILY PRN PRN Reason: Constipation Stop: 02/24/19 09:21 Valsartan (Diovan) 80 mg PO [facility] Stop: 02/27/19 10:44
[2019-01-28] MEDS ORDERED: VALSARTAN 80 MG TAB PO SCH (10:45)
--- NOTE | 2019-01-28 11:20 | Cardiology Progress Note ---
Date of Service January 28, 2019 Assessment & Plan (1) New onset a-fib: s/p DEMARIO guided cardioversion now in sinus, feels well will d/c home on metoprolol succinate 50mg po daily and Eliquis 5mg po bid my office will call to arrange f/u with me in 1 month restrictions and bleeding concern reviewed patient and family agree with plan ok to d/c to home from cardiac standpoint. (2) Hypertension: well controlled since starting metoprolol would not restart HCTZ or lisinopril f/u as outpatient (3) Elevated troponin: Troponins minimally elevated and flat. Echocardiogram demonstrates preserved LV function EKG with findings consistent hypertension and possible conduction disease will consider outpatient nuclear stress test upon follow up Subjective Pt seen and examined s/p cardioversion, states that he feels well. Denies cp, sob, palpitations, lightheadedness or dizziness. tele reviewed: sinus rhythm Review of Systems Review of Systems: All systems reviewed & are unremarkable except as noted in HPI & below Physical Exam Physical Exam: General: Awake, alert and oriented x 3. No acute distress. HEENT: Normocephalic, atraumatic. Pupils equal, round and reactive to light and accommodation. Extraocular muscles are intact. Anicteric sclera. Moist mucous membranes. Neck: No JVD. No bruit. Cardiovascular: Regular. Positive S-4. Normal S-1 and S-2. No S-3. No murmurs or rubs. Pulmonary: Clear to auscultation B/L. No rales, rhonchi or wheezing Abdomen: Bowel sounds x 4, soft. No rebound, guarding or tenderness. No organomegaly. Extremities: No clubbing, cyanosis or edema. +2 pedal pulses bilaterally. Skin: Warm and dry. Results & Data Vital Signs (Past 12 Hours) Vital Signs Temp Pulse Pulse Resp BP BP Pulse Ox 01/28/19 09:42 72 01/28/19 09:25 36.8 C 72 18 119/80 94 01/28/19 09:00 105 H 20 98/78 L 100 01/28/19 08:55 98 H 20 117/68 99 01/28/19 08:50 108 H 20 119/81 99 01/28/19 07:08 36.4 C L 75 16 145/86 H 95 01/28/19 03:19 36.6 C 75 16 139/90 99 01/27/19 23:18 36.6 C 68 18 127/76 98
[2019-01-28] MEDS: APIXABAN 5 MG TABLET PO SCH (11:44)
--- NOTE | 2019-01-28 17:44 | Discharge Summary ---
Date of Service January 28, 2019 Admission HPI Per Admitting Provider This is a 63-year-old male who has a significant past medical history of HTN, HLD, DJD who presents to [facility] ED secondary to episodes of profound lightheadedness and weakness since yesterday at 11 AM. is at bedside. 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 He was out working in heat yesterday when at approximately 11 AM he developed profound lightheadedness, weakness which made him to rest and leaning up against a tree. Episode would last for approximately 5 minutes before relieving. When he would go back out in the sun symptoms recurred. He had numerous similar episodes between 11 and 2 PM. He describes lightheadedness as feeling as if he could pass out. witnessed events and states, "I have never seen him like this, I was working with him and I could do more than he could." During episodes he denies any chest pain or pressure, palpitations, syncope, dizziness, shortness of breath or BRUEC, nausea or diaphoresis. He elicits he was sweating but felt it was secondary to the heat. During events he was not exerting himself. Due to frequency of symptoms patient and opted to quit working, get something to eat and push Gatorade. After eating and drinking he felt much improved for the rest of the evening. When he woke up this morning he initially felt well until he had another episode of lightheadedness and weakness which prompted him to seek ED. Currently he is feeling much improved. Denies any fever, chills, sweats, hemoptysis, nausea, vomiting, diarrhea, change in bowel or urinary habits. Feels lately his appetite has been decreased. He tries to be conscious about his fluid intake with working outside. Prior to yesterday patient has been well with no recent illness. 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 He did have a known tick bite approximately 3 weeks ago but has not noticed any rash or increased arthralgias. After tick bite his daughter who is ER doc who prescribed him 2 doses of prophylactic doxycycline. In ED patient was found to be in atrial fibrillation with RVR, heart rate 110. His troponin was elevated to 0.068. There were no ST or T wave changes on EKG. CK-MB and CK also elevated at 632 and 6.5 respectively. His TSH was WNL. CBC relatively unremarkable. BMP was significant for elevated BUN 21, creatinine 1.09. Lyme titer negative. Admission Exam Per Admitting Provider Physical Exam: Gen: WD/WN, M, NAD, sitting up in bed, pleasant, conversing easily Head: Normocephalic, Atraumatic Eyes: Sclera normal, no conjunctival injection, PERRLA, EOMI ENT: Gross hearing intact, normal pharynx, mucous membranes moist Neck: supple, no adenopathy, No JVD, no bruit, Resp: Clear to auscultation b/l, no wheeze, rales, rhonchi. 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 Extremities: No edema bilaterally Skin: warm, moist, no rash, +negative turgor, cap refill < 2sec Neuro: Alert and oriented x 3, speech normal, good mood/affect, cran nerve 2-12 intact grossly : deferred Principal Diagnosis New onset atrial fibrillation-converted to sinus rhythm following cardioversion, on Eliquis, hypertension Discharge Exam Constitutional well developed and well nourished; no acute distress Eyes PERRL, conjunctivae normal, anicteric sclerae ENMT external ear and nose normal, oropharynx normal Neck trachea midline, no thyromegaly Respiratory normal respiratory effort Auscultation: lungs clear to auscultation bilaterally Cardiovascular Rate/Rhythm: regular rate and regular rhythm Heart Sounds: no murmur Gastrointestinal (Abdomen) Inspection/Auscultation: abdomen normal to inspection and normal bowel sounds Percussion/Palpation: abdomen soft Neurologic PERRL, EOMI, accommodation nl, no face palsy, no dysarthria Psychiatric A+Ox3, euthymic affect Lymphatic no cervical or axillary lymphadenopathy Discharge Data Allergies Allergy/AdvReac Type Severity Reaction Status Date / Time No Known Allergies Allergy Unknown Verified 01/25/19 06:28 Consultations 01/25/19 07:30 ED Decision to Admit Stat 01/25/19 07:44 Consult Cardiology Routine Procedures Performed Operation Date: 01/28/19 08:00 Actual Procedures p Cardioversion - Steffen Hdez DO Hospital Course (1) New onset a-fib: Present on admission with lightheadedness and weakness was found to be in Afib with RVR Received IV lopressor in the ER Cardizem 10mgx1 IV given today and starting on cardizem drip Rate controlled with Cardizem drip IV heparin drip discontinued and started on eliquis Appreciate cardiology input and recommendation Metoprolol increased to 50 mg BID Status post elective cardioversion this morning He reverted to sinus rhythm and denies any cardiac symptoms Has been ambulating in the hallway Will discharge him this afternoon (2) Acute dehydration: Creatinine on admission 1.09 Received IVF Creatinine improves to 0.8 Monitor BMP Stable (3) Elevated troponin: Troponin on admission 0.068 Possible related to demand ischemia due to Afib Troponin trending down to 0.047 EKG showed no ischemic changes ECHO showed no wall motion abnormality with EF btw 65-70% (4) Hypertension: BP stable Continue Lisinopril and metoprolol Will d/c HCTZ on discharge He does not want to continue with valsartan Discussed with newsperson and will be given valsartan on discharge DVT Prophylaxis: On IV Heparin discontinued On Eliquis Disposition: Discharge to home when able Follow up: PCP Dr. Archer upon discharge; along with appropriate cardiology follow up Total Time Total Time Spent Total Time Spent (In Minutes): 35 minutes Total Time Includes: Examination of the Patient, Discharge Planning, Medication Reconciliation and Communication With Other Providers Discharge Plan Discharge Items Patient Disposition: Home - Self-Care Reason For Visit: DIZZY Discharge Diagnosis: New onset atrial fibrillation-converted to sinus rhythm following cardioversion, on Eliquis, hypertension Condition: Good Discharge Goals: Decrease discomfort, Improve function and Increase independence Activity: Resume your previous activity Non-emergency contact: Primary Care Provider Call non-emergency contact if: you have any medication questions and your symptoms worsen Follow-up/Referrals: Christian Archer MD [Primary Care Provider] - 02/04/19 10:45 am (Your appointment is with Dr. Acuna. Dr. Archer is not available. Please keep appointment with newsperson) Diet: Heart Healthy and Low Sodium (2gm) Addtl Provider Instructions: Please take precaution to avoid falls. Losartan and hydrochlorothiazide have been discontinued and started with valsartan to control blood pressure. Metoprolol succinate has been added. Has been started on Eliquis for atrial fibrillation and has been discontinued. Prescriptions: New metoprolol succinate 50 mg Tablet Extended Release 24 Hr 50 mg PO QAM 30 Days Qty: 30 RF: 0 valsartan [Diovan] 80 mg Tablet 80 mg PO QAM 30 Days Qty: 30 RF: 0 Eliquis 5 mg Tablet 5 mg PO BID 30 Days Qty: 60 RF: 0 Continued multivitamin Tablet 1 tab PO QAM RF: 0 Discontinued lisinopril 20 mg Tablet 20 mg PO QAM RF: 0 aspirin 81 mg Tablet,Delayed Release (Dr/Ec) 81 mg PO QAM RF: 0 hydrochlorothiazide 25 mg Tablet 25 mg PO QAM RF: 0 Stand-Alone Forms: [facility] Discharge Orders: Discharge Order (Routine); Ordered 01/28/19 Ordered By: Aundrea Bryan Admission Data Admit Date/Time: 01/25/19 07:44 Attending Provider: Aundrea Bryan Admit Provider: Aundrea Bryan Primary Care Provider: Christian Archer Other Providers: David Hoyt ; Thee Barr ; Aundrea Bryan ; Claudia Caro Service: Telemetry Other Interventions: Discharge Summary Assessment (RN) Last Done: 01/28/19 12:17 DC Date/Time DO NOT enter until pt leaves facility: 01/28/19 12:25
== END 2019-01-28 12:25 | disposition home or self-care (01) | DRG 309 ==
LOC: ED 06:02 → 2S 07:44 → SUATTDRO 07:44 → 2S 09:16

== ENCOUNTER 2019-07-25 07:19 | Inpatient (IN) ==
[2019-07-25 07:54] LABS: Basophils # (auto) 0.02 K/uL (0-0.2); Basophils % (auto) 0.3 %; Eosinophils # (auto) 0.13 K/uL (0-0.5); Eosinophils % (auto) 2.2 %; Hemoglobin 15.7 g/dL (14.0-18.0); Immature Granulocytes # (auto) 0.04 K/uL (0.00-0.02); Immature Granulocytes % (auto) 0.7 %; Lymphocytes # (auto) 1.35 K/uL (1.2-3.4); Lymphocytes % (auto) 23.3 %; Mean Corpuscular Hemoglobin 29.3 pg (25-34); Mean Corpuscular Hgb Conc 34.1 g/dL (32-36); Mean Corpuscular Volume 85.8 fL (80-100); Mean Platelet Volume 10.2 fL (7.4-10.4); Monocytes # (auto) 0.45 K/uL (0.11-0.59); Monocytes % (auto) 7.8 %; Neutrophils % (auto) 65.7 %; Platelet Count 160 K/uL (130-400); RDW Coefficient of Variation 14.2 % (11.5-14.5); RDW Standard Deviation 44.2 fL (36.4-46.3); Red Blood Count 5.36 M/uL (4.7-6.1); White Blood Count 5.79 K/uL (4.8-10.8)
--- NOTE | 2019-07-25 07:56 | Emergency Department Note ---
ED Provider Note CHIEF COMPLAINT: Weakness, concerned for A. fib HISTORY OF PRESENTING ILLNESS: This is a 64-year-old male with past medical history significant for hypertension, hyperlipidemia, NSTEMI, and atrial fibrillation with history of cardioversion, who presents to the emergency department with complaints of feeling weak and tired for the past 3 days. Patient notes that he feels similar to when he went into atrial fibrillation over the summer. He notes that he has been feeling exhausted and having some shortness of breath with exertion which he notes is unusual for him. He describes some mild chest pressure she describes as a 1/10 which she has been having off and on, but more constant since yesterday. The patient notes that he has a portable heart monitor at home that he used to check his pulse and he relates that his heart rate was in the 170s, which prompted him to come to the emergency department today. Patient takes metoprolol, he notes that he has been taking this medication. He is not currently on blood thinner medication. He denies any fevers, chills, URI symptoms, cough, dizziness or syncope, abdominal pain, back pain, nausea or vomiting, urinary complaints, or unusual rash. REVIEW OF SYSTEMS: A complete 10 point review of systems was reviewed with the patient with pertinent positives and negatives as per history of present illness. All else were negative. PAST MEDICAL HISTORY: Hypertension, hyperlipidemia, NSTEMI, atrial fibrillation s/p cardioversion SOCIAL HISTORY: Lives at home with family, he denies tobacco use ALLERGIES: No known allergies PHYSICAL EXAM: CONSTITUTIONAL: Pleasant and cooperative. Nontoxic-appearing and in no acute distress. Well appearing and well nourished. HEENT: Normocephalic, atraumatic. PERRL, EOMI. moist mucous membranes. NECK: Supple, full active range of motion without discomfort. RESPIRATORY: Slightly diminished in the bases bilaterally, otherwise clear to auscultation with no wheezing, crackles, rhonchi or stridor. Equal expansion bilaterally. CARDIOVASCULAR: Irregularly irregular rate and rhythm with no murmurs, rubs or gallops. Normal peripheral perfusion, 2+ distal pulses in all 4 extremities. No pitting edema. GASTROINTESTINAL: Soft, nontender, nondistended. No palpable masses or HSM. Bowel sounds present in all quadrants. MUSCULOSKELETAL: Full range of motion of all joints without discomfort. No calf tenderness or swelling appreciated. Negative Homans sign bilaterally. INTEGUMENTARY: No rash or other significant dermatologic conditions noted. NEUROLOGIC: Alert and oriented X 4 with normal affect. Normal strength and sensation in all 4 extremities. Normal speech. Normal gait observed. ED COURSE AND MEDICAL DECISION MAKING: CC: Patient presenting with complaint of weakness DIFFERENTIAL DIAGNOSIS: Includes, but not limited to cardiac dysrhythmia, acute coronary syndrome, pulmonary embolism, pneumothorax, pericarditis, myocarditis, anxiety, dehydration, electrolyte abnormality, GERD, pneumonia, among others. INTERPRETATION OF LABS: No leukocytosis, no anemia, normal platelets, no significant electrolyte abnormalities, normal renal function, normal liver enzymes. Negative troponin. Coagulation factors within normal limits. IMAGING: XR chest 1V portable CLINICAL HISTORY: 64 years-old Male presenting with Chest Pain, atrial fibrillation. TECHNIQUE: Portable upright AP view of the chest was obtained. COMPARISON: 01/25/2019. FINDINGS: Cardiac silhouette moderately enlarged. Pulmonary vascular prominence stable to increased from prior. Mild interstitial prominence increased from prior. Slight added density of the lung bases. No focal opacity. No large effusion or pneumothorax. Degenerative changes of the thoracic spine. IMPRESSION: 1. Cardiomegaly with volume overload and congestive change. No francoise pulmonary edema at this time though added density of the lung bases makes early/developing pulmonary edema difficult to exclude. EKG: Shows atrial fibrillation with rapid ventricular response with a rate of 108 bpm, no ST or T wave abnormalities, no ectopy, atrial fibrillation has replaced sinus rhythm and the ventricular rate has increased by 39 bpm when compared to previous EKG from 01/28/2019 by my interpretation. MEDICATION RECONCILIATION: I attest that I have personally reviewed the patient's current medication list. INITIAL VITAL SIGNS REVIEW: I reviewed the patient's initial vital signs and interpret them as follows: T: Afebrile; BP: Hypertensive; HR: Tachycardic; RR: Within normal limits; Pulse Ox: Within normal limits on room air. Blood pressure screening: The patient was found to have an elevated blood pressure, and was referred to the inpatient team for further management. MDM SUMMARY: Patient was evaluated at bedside, history and physical exam performed. Patient is alert and oriented, no acute distress, resting calmly in stretcher. Patient was placed on the monitor tech and was noted to be in atrial fibrillation with a rapid ventricular response, heart rates 110-120s. Blood pressure is stable. The patient is not in any distress. Lungs are clear, slightly diminished in the bases. Patient does complain of some very mild chest pressure that he rates as 1/10. H e denies chest pain. EKG reviewed at bedside, which does confirm atrial fibrillation with a rapid ve ntricular response, but no ischemic changes appreciated. [id number] Score is 1. Heart score is 4. Orders were placed at bedside for labs including a troponin, chest x-ray to evaluate for cardiopulmonary disease. Patient was offered something for pain, he declines at this time. Patient discussed with Dr. Ulloa, who agrees with my assessment, plan, and disposition. 5 mg IV metoprolol was given to help rate control the atrial fibrillation. Labs and imaging reviewed as above, labs are fairly unremarkable. Troponin is negative. Chest x-ray shows cardiomegaly with mild congestion concerning for developing pulmonary edema, but no overt pulmonary edema and no pneumonia or other abnormality. Patient reassessed multiple times throughout ED stay, he has remained hemodynamically stable, but does remain in atrial fibrillation, with heart rates ranging from 80 to 110 bpm. I spoke on the phone with Dr. Hdez, cardiology, who recommended bringing the patient in for admission and placing him on a heparin drip, this was ordered per his request. I spoke on the phone [facility], who agrees to evaluate the patient for admission. The patient and his were updated on all results and plan for admission, they verbalized understanding and were agreeable to this plan. The patient was stable at time of admission. The chart was completed utilizing [employer] Speech voice recognition software. Grammatical errors, random word insertions, pronoun errors, and incomplete sentences are an occasional consequence of this system due to software limitations, ambient noise, and hardware issues. Any formal questions or concerns about the content, text, or information contained within the body of this dictation should be directly addressed to the nurse practitioner for clarification. Impression & Plan Atrial fibrillation with rapid ventricular response, Hypertension Past Med/Surg History Medical History Atrial fibrillation History of cardioversion 01/28/19 - [facility] HLD (hyperlipidemia) (Chronic) Hypertension (Chronic) Obesity Osteoarthritis (Chronic) Surgical History History of anesthesia reaction (Chronic) TACHYCARDIA History of colonoscopy (Chronic) History of decompression of ulnar nerve (Chronic) History of elbow surgery (Chronic) I and D History of rotator cuff surgery (Chronic) History of tonsillectomy (Chronic) History of total bilateral knee replacement (TKR) (Chronic) History of total right hip replacement (Chronic) History of umbilical hernia repair (Chronic) Hx of vasectomy (Chronic) S/P cataract extraction and insertion of intraocular lens (Chronic) Left: 2mg of versed was given without apparent complications Family History Father Atrial fibrillation Mother Breast cancer Social History Preferred Language: Botswanan Communication Ability: Effective Supervisor Laboratory Animal Facility Required: Yes Beliefs That Will Affect Care: None Current Living Situation: Spouse 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[employer]; 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[email or web address], "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[employer]" Other Information That Helps Us Care for You: No Feels Safe at Home: Yes Safety Concerns: Feels Safe At This Time Smoking Status: Never smoker Do You Dip or Chew Tobacco: No ; Second Hand Exposure: No ; Tobacco Cessation Education Requested by Patient: No Hx Alcohol Use: Yes Alcohol type: beer Alcohol Intake Frequency: Holidays/Special Occasions Hx Substance Use: No Results & Data Vital Signs Vital Signs - 24 hr 07/25/19 07:23 07/25/19 07:32 07/25/19 07:35 Temperature 36.5 C Temperature Source Oral Pulse Rate 94 H 127 H Pulse Rate from SpO2 Sensor Respiratory Rate 18 19 Respiratory Effort / Characteristics Non-Labored Short of Breath SOB on Exertion Respiratory Depth Normal Normal Respiratory Pattern Regular Blood Pressure 151/96 H 123/89 Blood Pressure Mean 114 96 Blood Pressure Position Sitting Pulse Oximetry 98 98 98 Oxygen Delivery Method Room Air Room Air Sepsis Recent Fever Within 48 Hours No Sepsis New/Unexplained Change in Mental Status No Sepsis Action Taken by Nursing No Action Required 07/25/19 07:40 07/25/19 07:45 07/25/19 08:00 Temperature Temperature Source Pulse Rate 105 H 102 H Pulse Rate from SpO2 Sensor Respiratory Rate 23 18 Respiratory Effort / Characteristics Respiratory Depth Respiratory Pattern Blood Pressure 131/88 120/94 Blood Pressure Mean 94 109 Blood Pressure Position Pulse Oximetry 97 97 97 Oxygen Delivery Method Room Air Sepsis Recent Fever Within 48 Hours Sepsis New/Unexplained Change in Mental Status Sepsis Action Taken by Nursing 07/25/19 08:16 07/25/19 08:19 07/25/19 08:30 Temperature Temperature Source Pulse Rate 103 H 100 H 86 Pulse Rate from SpO2 Sensor Respiratory Rate 20 20 Respiratory Effort / Characteristics Respiratory Depth Respiratory Pattern Blood Pressure 138/101 H 138/101 H 124/85 Blood Pressure Mean 115 94 Blood Pressure Position Pulse Oximetry 97 96 Oxygen Delivery Method Sepsis Recent Fever Within 48 Hours Sepsis New/Unexplained Change in Mental Status Sepsis Action Taken by Nursing 07/25/19 08:45 07/25/19 09:00 07/25/19 09:15 Temperature Temperature Source Pulse Rate 100 H 89 90 Pulse Rate from SpO2 Sensor Respiratory Rate 16 24 16 Respiratory Effort / Characteristics Respiratory Depth Respiratory Pattern Blood Pressure 126/87 122/92 123/91 Blood Pressure Mean 111 96 93 Blood Pressure Position Pulse Oximetry 98 96 96 Oxygen Delivery Method Sepsis Recent Fever Within 48 Hours Sepsis New/Unexplained Change in Mental Status Sepsis Action Taken by Nursing 07/25/19 09:30 07/25/19 09:45 07/25/19 10:00 Temperature Temperature Source Pulse Rate 93 H 102 H 95 H Pulse Rate from SpO2 Sensor 94 H 92 H 83 Respiratory Rate 23 17 19 Respiratory Effort / Characteristics Respiratory Depth Respiratory Pattern Blood Pressure 123/89 124/97 126/95 Blood Pressure Mean 103 114 103 Blood Pressure Position Pulse Oximetry 96 97 96 Oxygen Delivery Method Sepsis Recent Fever Within 48 Hours Sepsis New/Unexplained Change in Mental Status Sepsis Action Taken by Nursing 07/25/19 10:15 Temperature Temperature Source Pulse Rate 105 H Pulse Rate from SpO2 Sensor 97 H Respiratory Rate 19 Respiratory Effort / Characteristics Respiratory Depth Respiratory Pattern Blood Pressure 124/101 H Blood Pressure Mean 105 Blood Pressure Position Pulse Oximetry 97 Oxygen Delivery Method Sepsis Recent Fever Within 48 Hours Sepsis New/Unexplained Change in Mental Status Sepsis Action Taken by Nursing Laboratory Data Result diagrams: 07/25/19 07:32 07/25/19 07:32 Lab Results 07/25/19 07/25/19 07/25/19 Range/Units 07:32 07:32 07:32 WBC 5.79 (4.8-10.8) K/uL RBC 5.36 (4.7-6.1) M/uL Hgb 15.7 (14.0-18.0) g/dL Hct 46.0 (42-52) % MCV 85.8 (80-100) fL MCH 29.3 (25-34) pg MCHC 34.1 (32-36) g/dL RDW Std Deviation 44.2 (36.4-46.3) fL RDW Coeff of Shaq 14.2 (11.5-14.5) % Plt Count 160 (130-400) K/uL MPV 10.2 (7.4-10.4) fL Immature Gran % (Auto) 0.7 % Neut % (Auto) 65.7 % Lymph % (Auto) 23.3 % Wilkes % (Auto) 7.8 % Eos % (Auto) 2.2 % Baso % (Auto) 0.3 % Immature Gran # (Auto) 0.04 H (0.00-0.02) K/uL Neut # (Auto) 3.80 (1.4-6.5) K/uL Lymph # (Auto) 1.35 (1.2-3.4) K/uL Wilkes # (Auto) 0.45 (0.11-0.59) K/uL Eos # (Auto) 0.13 (0-0.5) K/uL Baso # (Auto) 0.02 (0-0.2) K/uL PT 10.4 (9.0-12.0) Seconds INR 1.0 (0.9-1.1) APTT 27.2 (21.0-31.0) Seconds PTT Ratio 1.0 Sodium 141 (136-145) mmol/L Potassium 4.3 (3.5-5.1) mmol/L Chloride 107 (98-107) mmol/L Carbon Dioxide 28 (21-32) mmol/L Anion Gap 5.0 (3-11) BUN 13 (7-18) mg/dl Creatinine 0.94 (0.6-1.4) mg/dl Est Cr Clr Drug Dosing 112.9 ml/min Est GFR ( Amer) 99.6 Est GFR (Non-Af Amer) 85.9 BUN/Creatinine Ratio 13.6 (10-20) Glucose 117 H (70-99) mg/dl Calcium 9.1 (8.5-10.1) mg/dl Magnesium 2.0 (1.8-2.4) mg/dl Total Bilirubin 0.5 (0.2-1) mg/dl AST 16 (15-37) U/L ALT 32 (12-78) U/L Alkaline Phosphatase 58 (45-117) U/L Troponin I < 0.015 (0-0.045) ng/ml Total Protein 7.0 (6.4-8.2) gm/dl Albumin 3.9 (3.4-5.0) gm/dl Globulin 3.1 (2.5-4.0) gm/dl Albumin/Globulin Ratio 1.2 (0.9-2) TSH 1.450 (0.300-4.500) uIu/ml Administered Medications Heparin Sodium/Dextrose (Heparin Sodium/Dextrose) 25,000 units in 500 mls @ 36 mls/hr IV .[id number] [place]; Protocol Stop: 08/24/19 09:59 Last Titration: 07/25/19 15:15 Dose: 1,800 units/hr, 36 mls/hr Documented by: [id number] Cosigned by: [id number] Admin: 07/25/19 11:20 Dose: 1,800 units/hr, 36 mls/hr Documented by: [id number] Cosigned by: [id number] Metoprolol Tartrate (Lopressor) 50 mg PO TID [facility] Stop: 08/24/19 13:59 Last Admin: 07/25/19 14:10 Dose: 50 mg Documented by: [id number] Discontinued Medications Fentanyl Citrate (Fentanyl Citrate) Confirm Administered Dose 300 mcg .ROUTE .STK-MED ONE Stop: 07/25/19 12:46 Last Admin: 07/25/19 14:20 Dose: 125 mcg Documented by: [id number] Flumazenil (Romazicon) Confirm Administered Dose 1 mg .ROUTE .STK-MED ONE Stop: 07/25/19 12:46 Last Admin: 07/25/19 14:06 Dose: Not Given Documented by: [id number] Heparin Sodium (Porcine) (Heparin Iv Bolus) Confirm Administered Dose 10,000 units .ROUTE .STK-MED ONE Stop: 07/25/19 10:45 Last Admin: 07/25/19 11:21 Dose: 8,000 units Documented by: [id number] Cosigned by: [id number] Heparin Sodium/Dextrose () 1 ea IV NOW STA; Protocol Stop: 07/25/19 09:47 Last Admin: 07/25/19 11:21 Dose: Not Given Documented by: [id number] Metoprolol Tartrate (Lopressor) 5 mg IV NOW STA Stop: 07/25/19 08:12 Last Admin: 07/25/19 08:19 Dose: 5 mg Documented by: [id number] Midazolam HCl (Versed) Confirm Administered Dose 6 mg .ROUTE .STK-MED ONE Stop: 07/25/19 12:46 Last Admin: 07/25/19 14:20 Dose: 6 mg Documented by: [id number] Naloxone HCl (Narcan) Confirm Administered Dose 0.4 mg .ROUTE .STK-MED ONE Stop: 07/25/19 12:46 Last Admin: 07/25/19 14:06 Dose: Not Given Documented by: [id number] Discharge Plan Visit Data *Final* Discharge Date/Time: 07/25/19 11:26 Chief Complaint: Arrhythmia/Palpitations Stated Complaint: THINKS MAY BE GOING INTO A-FIB ED Provider: Ritchie Ulloa ED Midlevel Provider: Juana Sanz Discharge Problem: Atrial fibrillation with rapid ventricular response, Hypertension Patient Disposition: Admitted As Inpatient Discharge Instructions Interventions: ED Discharge Assessment Last Done: 07/25/19 11:26
--- NOTE | 2019-07-25 08:00 | XRay Report ---
XR chest 1V portable CLINICAL HISTORY: 64 years-old Male presenting with Chest Pain, atrial fibrillation. TECHNIQUE: Portable upright AP view of the chest was obtained. COMPARISON: 01/25/2019. FINDINGS: Cardiac silhouette moderately enlarged. Pulmonary vascular prominence stable to increased from prior. Mild interstitial prominence increased from prior. Slight added density of the lung bases. No focal opacity. No large effusion or pneumothorax. Degenerative changes of the thoracic spine. IMPRESSION: 1. Cardiomegaly with volume overload and congestive change. No francoise pulmonary edema at this time th ough added density of the lung bases makes early/developing pulmonary edema difficult to exclude. ACT 112: Negative or not required by law. Electronically signed by: Carlos Loera M.D. 07/25/2019 7:59 AM
[2019-07-25 08:05] LABS: Alanine Aminotransferase 32 U/L (12-78); Albumin Level 3.9 gm/dl (3.4-5.0); Aspartate Aminotransferase 16 U/L (15-37); BUN Creatinine Ratio 13.6 (10-20); Blood Urea Nitrogen 13 mg/dl (7-18); Calcium 9.1 mg/dl (8.5-10.1); Carbon Dioxide 28 mmol/L (21-32); Chloride 107 mmol/L (98-107); Creatinine Clr Calc Pharmacy 112.9 ml/min; Est GFR (African American) 99.6; Est GFR (Non-African American) 85.9; Glucose 117 mg/dl (70-99); Potassium 4.3 mmol/L (3.5-5.1); Sodium 141 mmol/L (136-145)
[2019-07-25 08:10] LABS: Albumin Globulin Ratio 1.2 (0.9-2); Alkaline Phosphatase 58 U/L (45-117); Bilirubin,Total 0.5 mg/dl (0.2-1); Globulin 3.1 gm/dl (2.5-4.0); Troponin I < 0.015 ng/ml (0-0.045)
[2019-07-25] MEDS ORDERED: METOPROLOL TARTRATE 1 MG/ML VIAL IV STA (08:11)
[2019-07-25 10:06] LABS: Partial Thromboplastin Time 27.2 Seconds (21.0-31.0); Prothrombin Time 10.4 Seconds (9.0-12.0)
--- NOTE | 2019-07-25 10:31 | History & Physical Report ---
Date of Service July 25, 2019 Assessment & Plan (1) Atrial fibrillation: Pt is 64 y/o M with PMH A-fib s/p cardioversion in 01/2019, HTN, HLD, obesity presented to ER with c/o fatigue, exertional SOB, weakness x 2 days with worsening symptoms this morning. 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 EKG: atrial fibrillation, rate 108 -In ER given Lopressor 5mg IV, Heparin bolus and drip started -Add magnesium and TSH labs -Hold home metoprolol succinate -Change to Metoprolol tartrate 50mg po TID -Metoprolol tartrate 5mg IV Q6H prn tachycardia -Continue Heparin Drip -NPO midnight -CHADSVASC: 1 for HTN -Will hold aspirin, would appreciate cardiology input on pt's daily aspirin 81 mg -Cardiology consult, Dr Hdez aware (2) Hypertension: Pt reports no longer taking HCTZ -BP Stable -Continue valsartan -Metoprolol changes as above -Monitor BP (3) HLD (hyperlipidemia): Current diet controlled -Lipid panel in am DVT Prophylaxis -On Heparin Drip currently Follows with Dr Archer for routine care Pt was seen and care coordinated with Dr Pierre. See addendum History of Present Illness Chief Complaint: Fatigue Primary Care Provider: Christian Archer MD Pt is 64 y/o M with PMH A-fib s/p cardioversion in 01/2019, HTN, HLD, obesity presented to ER with c/o fatigue, exertional SOB x 2 days. Pt states 2 days ago started with SOB with exertion, fatigue, weakness, intermittent chest tightness. 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 Pt reports this feels like his prior episode of A-fib. Denies palpitations, dizziness, syncope. He denies any missed medication doses of metoprolol or valsartan. Reports no longer on HCTZ. States takes aspirin 81mg daily for good health. Reports drank 3 alcoholic drinks in past 3-5 days. Drinks 1-2 cups coffee daily. Denies other medication use. Reports chronic mild BLE edema for years with no increased edema. Denies fever/chills, diaphoresis, N/V/D/C, [place], vision changes, neck pain, orthopnea, cough, sore throat, choking, otalgia, rhinorrhea, abdominal pain, paresthesias, rashes, urinary symptoms. Allergies Allergy/AdvReac Type Severity Reaction Status Date / Time No Known Allergies Allergy Unknown Verified 07/25/19 08:06 Home Medications Home Medications Medication Instructions Recorded Confirmed Type multivitamin 1 tab PO QAM 07/04/18 07/25/19 History aspirin [Aspirin Low Dose] 81 mg PO DAILY 07/25/19 07/25/19 History metoprolol succinate 50 mg PO DAILY 07/25/19 07/25/19 History valsartan 80 mg PO DAILY 07/25/19 07/25/19 History Past Med/Surg History Medical History Atrial fibrillation History of cardioversion 01/28/19 - [facility] HLD (hyperlipidemia) (Chronic) Hypertension (Chronic) Obesity Osteoarthritis (Chronic) Surgical History History of anesthesia reaction (Chronic) TACHYCARDIA History of colonoscopy (Chronic) History of decompression of ulnar nerve (Chronic) History of elbow surgery (Chronic) I and D History of rotator cuff surgery (Chronic) History of tonsillectomy (Chronic) History of total bilateral knee replacement (TKR) (Chronic) History of total right hip replacement (Chronic) History of umbilical hernia repair (Chronic) Hx of vasectomy (Chronic) S/P cataract extraction and insertion of intraocular lens (Chronic) Left: 2mg of versed was given without apparent complications Family History Father Atrial fibrillation Mother Breast cancer Social History (Updated 07/25/19 @ 10:35 by Hali Cooper PA-C) Preferred Language: Yakut Communication Ability: Effective Mva Reactor Operator Required: No Beliefs That Will Affect Care: None Current Living Situation: Spouse 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; 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[employer], "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" Feels Safe at Home: Yes Smoking Status: Never smoker Second Hand Exposure: No ; Hx Alcohol Use: Yes Alcohol type: beer Alcohol Intake Frequency: Holidays/Special Occasions Hx Substance Use: No Review of Systems Review of Systems: All systems reviewed & are unremarkable except as noted in HPI & below Physical Exam Physical Exam: General: no distress, obese Head: normocephalic, atraumatic Eyes: PERRL, EOM's intact, conjunctiva non-injected, anicteric ENT: normal inspection external ears, nose, mucous membranes moist Neck: supple, trachea midline, non-tender Lungs: clear, no respiratory distress, no wheezing/rhonchi/rales CV: irregularly irregular, rate 102, no murmur, no JVD, 1+pretibial edema Abd: normal BS, soft, non-tender Ext: no cyanosis, no calf tenderness Neuro: A&O x 3, no focal deficits noted, normal affect Skin: warm, dry Results & Data Vital Signs (Past 12 Hours) Vital Signs Temp Pulse Resp BP Pulse Ox 07/25/19 09:15 90 16 123/91 96 07/25/19 09:00 89 24 122/92 96 07/25/19 08:45 100 H 16 126/87 98 07/25/19 08:30 86 20 124/85 96 07/25/19 08:19 100 H 138/101 H 07/25/19 08:16 103 H 20 138/101 H 97 07/25/19 08:00 102 H 18 120/94 97 07/25/19 07:45 105 H 23 131/88 97 07/25/19 07:40 97 07/25/19 07:35 98 07/25/19 07:32 127 H 19 123/89 98 07/25/19 07:23 36.5 C 94 H 18 151/96 H 98 Laboratory Results Short CBC 07/25/19 Range/Units 07:32 WBC 5.79 (4.8-10.8) K/uL Hgb 15.7 (14.0-18.0) g/dL Hct 46.0 (42-52) % Plt Count 160 (130-400) K/uL BMP 07/25/19 07:32 Sodium 141 Potassium 4.3 Chloride 107 Carbon Dioxide 28 BUN 13 Creatinine 0.94 Glucose 117 H Calcium 9.1 Cardiac Enzymes 07/25/19 Range/Units 07:32 Troponin I < 0.015 (0-0.045) ng/ml Liver Function 07/25/19 Range/Units 07:32 Total Bilirubin 0.5 (0.2-1) mg/dl AST 16 (15-37) U/L ALT 32 (12-78) U/L Alkaline Phosphatase 58 (45-117) U/L Albumin 3.9 (3.4-5.0) gm/dl Diagnostic Findings CXR: IMPRESSION: 1. Cardiomegaly with volume overload and congestive change. No francoise pulmonary edema at this time though added density of the lung bases makes early/developing pulmonary edema difficult to exclude. ECG Rate (beats per minute): 108 Rhythm: atrial fibrillation Supervising Physician Co-Signing Physician Notes Patient is a 64-year-old male with history of A. fib, hypertension, hyperlipidemia and other problems presents with history of dyspnea on exertion, generalized weakness since 2 days duration. He was noted to be in A. fib RVR while in ED. Patient denies any chest pain, palpitations, nausea, dizziness. Chest x-ray suggestive of volume overload and congestive change. Please review HPI for complete details of presentation. On exam patient is obese, no apparent distress, normocephalic atraumatic, lungs are clear to auscultation, irregularly irregular rhythm, tachycardia, no murmur, trace pedal edema, abdomen soft nontender, bowel sounds are present, alert awake oriented, grossly no focal neural deficits. Patient is admitted for management of A. fib RVR. Started on IV heparin drip for anticoagulation. Increased home beta-donna to metoprolol tartrate 50 mg daily. Plan to continue IV Lopressor PRN. Agree with checking TSH, magnesium levels. Trend troponin. Keep him n.p.o. after midnight for p ossible cardioversion in AM. Cardiology consulted. Last ECHO in December 2018 showed EF 65 to 70%. Volume overload likely secondary to A. fib RVR. Monitor volume status closely. Consider repeating ECHO once heart rate is better controlled. I personally reviewed the record. Patient is interviewed and examined at bedside. Patient's care is coordinated with Hali Cooper PA-C. Please refer to geo ivan documentation above for details of patient's presentation and for discussion of other issues.
[2019-07-25] MEDS ORDERED: HEPARIN SOD (PORCINE) 1000 UNIT/ML 10 ML VIAL ONE (10:44)
[2019-07-25] MEDS: HEPARIN SODIUM/DEXTROSE 25,000 UNITS/500 ML BAG IV SCH (11:20)
[2019-07-25] MEDS ORDERED: ACETAMINOPHEN 325 MG TAB PO PRN (11:45)
[2019-07-25] MEDS ORDERED: METOPROLOL TARTRATE 1 MG/ML VIAL IV PRN (11:45)
--- NOTE | 2019-07-25 12:43 | Cardiology Consultation ---
Date of Consultation July 25, 2019 Assessment & Plan (1) Atrial fibrillation with rapid ventricular response: The pathophysiology and treatment options for atrial fibrillation were discussed with the patient at great lengths. Given the fact that this is his second unprovoked episode of atrial fibrillation we will proceed with a DEMARIO guided cardioversion and subsequent sotalol loading to help prevent further events. The benefits, risks and alternatives of the above plan were discussed with the patient at great lengths and he wishes to proceed. He has been n.p.o. all day so we will be able to do the procedure today. Also discussed the above plan with his daughter who is an osteopathic ER physician and she is in agreement as well. After the DEMARIO guided cardioversion will be started on sotalol 80 mg twice daily and after 24 hours of IV heparin will be started on p.o. Eliquis as well. (2) Hypertension: Will follow (3) TRISH (obstructive sleep apnea): Outpatient sleep study scheduled for August will obtain a nocturnal pulse ox tonight. History of Present Illness Reason for Consultation: Atrial fibrillation with rapid ventricular response Requesting Physician: Dr. Pierre Attending Physician: Randy Pierre MD History of Present Illness It was my pleasure to see in consultation today July 25, 2019. He is a very pleasant 64-year-old gentleman who normally follows with myself as an outpatient. He presented to [facility] on 07/25/2019 with reports of not feeling well. 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 However, he states that for the last 2 days he has been having some dyspnea with exertion and feeling rather rundown. He notes that he just seems weak and this is similar to his previous presentation with atrial fibrillation. He woke this morning feeling not well he checked his home digital photographic printer and showed A. fib with rates in the 170s. He then came in the emergency room. A. fib with rapid ventricular spots was confirmed he was started on a heparin drip per my direction and given IV Lopressor. Currently states he is feeling a little bit better after receiving the Lopressor but still not quite right. He notes that he figured something would have to be done so he has not eaten anything today at all. He has been compliant with his medications at home. Past medical history Per my most recent outpatient note: 1. Paroxysmal atrial fibrillation, relatively asymptomatic, with a chads Vasc score of 1 2. Hypertension 3. Aortic root top normal size at 4 cm with normal ascending aortic diameter Allergies Allergy/AdvReac Type Severity Reaction Status Date / Time No Known Allergies Allergy Unknown Verified 07/25/19 08:06 Home Medications Home Medications Medication Instructions Recorded Confirmed Type multivitamin 1 tab PO QAM 07/04/18 07/25/19 History aspirin [Aspirin Low Dose] 81 mg PO DAILY 07/25/19 07/25/19 History metoprolol succinate 50 mg PO DAILY 07/25/19 07/25/19 History valsartan 80 mg PO DAILY 07/25/19 07/25/19 History Patient History Medical History Atrial fibrillation History of cardioversion 01/28/19 - [facility] HLD (hyperlipidemia) (Chronic) Hypertension (Chronic) Obesity Osteoarthritis (Chronic) Surgical History History of anesthesia reaction (Chronic) TACHYCARDIA History of colonoscopy (Chronic) History of decompression of ulnar nerve (Chronic) History of elbow surgery (Chronic) I and D History of rotator cuff surgery (Chronic) History of tonsillectomy (Chronic) History of total bilateral knee replacement (TKR) (Chronic) History of total right hip replacement (Chronic) History of umbilical hernia repair (Chronic) Hx of vasectomy (Chronic) S/P cataract extraction and insertion of intraocular lens (Chronic) Left: 2mg of versed was given without apparent complications Family History Father Atrial fibrillation Mother Breast cancer Social History Preferred Language: Dominican Communication Ability: Effective Cotton Stomper Required: Yes Beliefs That Will Affect Care: None Current Living Situation: Spouse 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 No acute distress. HEENT: Normocephalic, atraumatic. Pupils equal, round and reactive to light and accommodation. Extraocular muscles are intact. Anicteric sclera. Moist mucous membranes. Neck: No JVD. No bruit. Cardiovascular: irregularly irregular, unable to appreciate murmur, rub or gallop. Pulmonary: Clear to auscultation bilaterally. No rales, rhonchi, or wheezing. Abdomen: Bowel sounds x 4, soft. No rebound, guarding or tenderness. No organomegaly. Extremities: No clubbing, cyanosis or edema. +2 pedal pulses bilaterally. Skin: Warm and dry. Results & Data Vital Signs (Past 12 Hours) Vital Signs Temp Pulse Pulse Resp BP BP Pulse Ox 07/25/19 12:00 36.6 C 102 H 16 158/102 H 96 07/25/19 11:46 36.6 C 16 158/102 H 96 07/25/19 11:15 111 H 17 145/101 H 96 07/25/19 11:00 110 H 16 129/106 H 96 07/25/19 10:45 99 H 23 133/100 97 07/25/19 10:30 101 H 16 119/87 97 07/25/19 10:15 105 H 19 124/101 H 97 07/25/19 10:00 95 H 19 126/95 96 07/25/19 09:45 102 H 17 124/97 97 07/25/19 09:30 93 H 23 123/89 96 07/25/19 09:15 90 16 123/91 96 07/25/19 09:00 89 24 122/92 96 07/25/19 08:45 100 H 16 126/87 98 07/25/19 08:30 86 20 124/85 96 07/25/19 08:19 100 H 138/101 H 07/25/19 08:16 103 H 20 138/101 H 97 07/25/19 08:00 102 H 18 120/94 97 07/25/19 07:45 105 H 23 131/88 97 07/25/19 07:40 97 07/25/19 07:35 98 07/25/19 07:32 127 H 19 123/89 98 07/25/19 07:23 36.5 C 94 H 18 151/96 H 98 Laboratory Results Laboratory Results - last 24 hr 07/25/19 07/25/19 07/25/19 07:32 07:32 07:32 WBC 5.79 RBC 5.36 Hgb 15.7 Hct 46.0 MCV 85.8 MCH 29.3 MCHC 34.1 RDW Std Deviation 44.2 RDW Coeff of Shaq 14.2 Plt Count 160 MPV 10.2 Immature Gran % (Auto) 0.7 Neut % (Auto) 65.7 Lymph % (Auto) 23.3 [place] % (Auto) 7.8 Eos % (Auto) 2.2 Baso % (Auto) 0.3 Immature Gran # (Auto) 0.04 H Neut # (Auto) 3.80 Lymph # (Auto) 1.35 [place] # (Auto) 0.45 Eos # (Auto) 0.13 Baso # (Auto) 0.02 PT 10.4 INR 1.0 APTT 27.2 PTT Ratio 1.0 Sodium 141 Potassium 4.3 Chloride 107 Carbon Dioxide 28 Anion Gap 5.0 BUN 13 Creatinine 0.94 Est Cr Clr Drug Dosing 112.9 Est GFR ( Amer) 99.6 Est GFR (Non-Af Amer) 85.9 BUN/Creatinine Ratio 13.6 Glucose 117 H Calcium 9.1 Magnesium 2.0 Total Bilirubin 0.5 AST 16 ALT 32 Alkaline Phosphatase 58 Troponin I < 0.015 Total Protein 7.0 Albumin 3.9 Globulin 3.1 Albumin/Globulin Ratio 1.2 TSH 1.450 Medications Administered Current Inpatient Medications Acetaminophen (Tylenol) 650 mg PO Q4H PRN PRN Reason: Pain or Fever Stop: 08/24/19 11:44 Heparin Sodium/Dextrose (Heparin Sodium/Dextrose) 25,000 units in 500 mls @ 36 mls/hr IV .[id number] [facility]; Protocol Stop: 08/24/19 09:59 Last Admin: 07/25/19 11:20 Dose: 1,800 units/hr, 36 mls/hr Documented by: Metoprolol Tartrate (Lopressor) 50 mg PO TID [facility] Stop: 08/24/19 13:59 Metoprolol Tartrate (Lopressor) 5 mg IV Q6 PRN PRN Reason: tachycardia Stop: 08/24/19 11:44 Multivitamins (Multivitamin Tab) 1 tab PO QAM [facility] Stop: 08/25/19 08:59 Valsartan (Diovan) 80 mg PO DAILY [facility] Stop: 08/25/19 08:59
[2019-07-25] MEDS ORDERED: FLUMAZENIL 0.1 MG/1 ML 10 ML VIAL ONE (12:45)
[2019-07-25] MEDS ORDERED: NALOXONE HCL 0.4 MG/1 ML VIAL/CARP ONE (12:45)
--- NOTE | 2019-07-25 13:00 | Pre Anesthesia Assessment ---
Date of Service July 25, 2019 Pre Sedation Assessment Vital Signs Temp Pulse Pulse Resp BP BP Pulse Ox 07/25/19 12:44 36.6 C 110 H 16 143/93 H 96 07/25/19 12:00 36.6 C 102 H 16 158/102 H 96 07/25/19 11:46 36.6 C 16 158/102 H 96 07/25/19 11:15 111 H 17 145/101 H 96 07/25/19 11:00 110 H 16 129/106 H 96 07/25/19 10:45 99 H 23 133/100 97 07/25/19 10:30 101 H 16 119/87 97 07/25/19 10:15 105 H 19 124/101 H 97 07/25/19 10:00 95 H 19 126/95 96 07/25/19 09:45 102 H 17 124/97 97 07/25/19 09:30 93 H 23 123/89 96 07/25/19 09:15 90 16 123/91 96 07/25/19 09:00 89 24 122/92 96 07/25/19 08:45 100 H 16 126/87 98 07/25/19 08:30 86 20 124/85 96 07/25/19 08:19 100 H 138/101 H 07/25/19 08:16 103 H 20 138/101 H 97 07/25/19 08:00 102 H 18 120/94 97 07/25/19 07:45 105 H 23 131/88 97 07/25/19 07:40 97 07/25/19 07:35 98 07/25/19 07:32 127 H 19 123/89 98 07/25/19 07:23 36.5 C 94 H 18 151/96 H 98 Pre-Sedation Airway Assessment Smoking Status: Never smoker Short, Thick Neck: No Thyromental Distance: > or= 3.5 Finger Breadths Oral Cavity: + WNL Mallampati Class: II ASA: ASA3 NPO Status Date of Last Intake of Fluids: 07/24/19 Time of Last Intake of Fluids: 21:00 Date of Last Intake of Solid Food: 07/24/19 Time of Last Intake of Solid Foods: 21:00 Notes The planned sedation has been discussed with the patient. Informed Consent was obtained. I have identified the patient, determined the appropriateness of sedation and have assessed the patient immediately prior to the procedure. All medicine(s) and interventions are by my order.
--- NOTE | 2019-07-25 13:27 | Post Anesthesia Assessment ---
Date of Service July 25, 2019 Post Sedation Assessment Vital Signs Temp Pulse Pulse Resp BP BP Pulse Ox 07/25/19 13:25 83 18 113/83 98 07/25/19 13:20 108 H 18 104/71 98 07/25/19 13:15 115 H 18 114/87 93 07/25/19 13:10 110 H 18 139/101 H 98 07/25/19 12:44 36.6 C 110 H 16 143/93 H 96 07/25/19 12:00 36.6 C 102 H 16 158/102 H 96 07/25/19 11:46 36.6 C 16 158/102 H 96 07/25/19 11:15 111 H 17 145/101 H 96 07/25/19 11:00 110 H 16 129/106 H 96 07/25/19 10:45 99 H 23 133/100 97 07/25/19 10:30 101 H 16 119/87 97 07/25/19 10:15 105 H 19 124/101 H 97 07/25/19 10:00 95 H 19 126/95 96 07/25/19 09:45 102 H 17 124/97 97 07/25/19 09:30 93 H 23 123/89 96 07/25/19 09:15 90 16 123/91 96 07/25/19 09:00 89 24 122/92 96 07/25/19 08:45 100 H 16 126/87 98 07/25/19 08:30 86 20 124/85 96 07/25/19 08:19 100 H 138/101 H 07/25/19 08:16 103 H 20 138/101 H 97 07/25/19 08:00 102 H 18 120/94 97 07/25/19 07:45 105 H 23 131/88 97 07/25/19 07:40 97 07/25/19 07:35 98 07/25/19 07:32 127 H 19 123/89 98 07/25/19 07:23 36.5 C 94 H 18 151/96 H 98 Recovery Score Activity: Moves 4 extremities Respiration: Deep Breath/Cough Circulation: +/-20% PreAnes Value Consciousness: Arouseable (by name) Oxygen Saturation: O2 needed for >90% Post Anesthesia Score: 8 Discharge Sedation Level of Care: Fast Track Phase II Post Sedation Plan On clinical assessment, the patient appears to have tolerated the sedation without complications. Patient is recovering as anticipated. Patient will continue to be monitored by nursing and may be discharged when sedation discharge criteria are met per below protocol. Upon Completions of procedure up to 15 minutes continue every 5 minute vital signs and the P.A.R. score; then discharge to a Phase I or Fast Track to Phase II per the following guidelines: * Discharge Patient to appropriate Phase II area if PAR is 8 or greater or return to pre- procedure baseline. The post - procedure orders will be as directed. * If PAR score is less than 8 or not return to pre-procedure baseline then patient will follow Phase I monitoring till PAR is reached for Phase II. The Phase I may be done in procedure room or may call to secure a Phase I area. * If naloxone or flumazenil are used for reversal, hold in Phase I for continued monitoring from when last reversal dose was given for a minimum of 60 minutes or longer pending the nurse and/or physician discretion of patient condition before discharge to Phase II. Please call the Sedation Physician to re-evaluate and complete post-note for discharge to Phase II area. Do NOT discharge from procedure sedation or Phase 1 until post- sedation evaluation note is complete by procedure /sedation MD Sedation Discharge Instructions to be given to the patient at discharge to home.
--- NOTE | 2019-07-25 13:30 | Cardioversion ---
Date of Service July 25, 2019 Electrical Cardioversion Rpt Electrical Cardioversion Report Informed consent obtained Pt prepped Conscious sedation achieved with Versed 4mg and Fentanyl 100mcg DEMARIO performed: unremarkable No left atrial appendage thrombus DEMARIO completed Pt repositioned additional Versed 2mg and Fentanyl 25mcg given 300J of synchronized energy delivered with successful cardioversion to sinus rhythm pt tolerated well to be recovered per protocol start time:1310 stop time: 1325
[2019-07-25] MEDS: fentaNYL citrate 100 MCG/2 ML VIAL ONE ×2 (14:06→14:20)
[2019-07-25] MEDS: MIDAZOLAM HCL 1 MG/ML 2ML VIAL ONE ×2 (14:06→14:20)
[2019-07-25] MEDS: METOPROLOL TARTRATE 50 MG TAB PO SCH ×2 (14:10→21:07)
[2019-07-25 19:53] LABS: Partial Thromboplastin Ratio 1.3; Partial Thromboplastin Time 36.2 Seconds (21.0-31.0)
[2019-07-25] MEDS ORDERED: HEPARIN IV BOLUS 8,000 UNITS in SYRINGE 0 ML IV ONE (20:45)
[2019-07-25] MEDS: SOTALOL HCL 80 MG TAB PO SCH (21:07)
[2019-07-26] MEDS: HEPARIN SODIUM/DEXTROSE 25,000 UNITS/500 ML BAG IV SCH ×2 (01:23→12:39)
[2019-07-26 03:11] LABS: Hematocrit (blood only) 43.9 % (42-52); Hemoglobin 14.9 g/dL (14.0-18.0); Mean Corpuscular Hemoglobin 29.3 pg (25-34); Mean Corpuscular Hgb Conc 33.9 g/dL (32-36); Mean Corpuscular Volume 86.2 fL (80-100); Mean Platelet Volume 9.9 fL (7.4-10.4); Platelet Count 156 K/uL (130-400); RDW Coefficient of Variation 14.2 % (11.5-14.5); Red Blood Count 5.09 M/uL (4.7-6.1)
[2019-07-26 03:31] LABS: Partial Thromboplastin Ratio 2.3
[2019-07-26 03:32] LABS: Partial Thromboplastin Time 62.1 Seconds (21.0-31.0)
[2019-07-26 03:35] LABS: BUN Creatinine Ratio 13.8 (10-20); Calcium 8.8 mg/dl (8.5-10.1); Creatinine Clr Calc Pharmacy 126.3 ml/min; Est GFR (Non-African American) 93.2; Potassium 4.1 mmol/L (3.5-5.1)
[2019-07-26] MEDS: MULTIVITAMIN TAB PO SCH (08:08)
[2019-07-26] MEDS: SOTALOL HCL 80 MG TAB PO SCH ×2 (08:08→19:54)
[2019-07-26] MEDS ORDERED: VALSARTAN 80 MG TAB PO SCH (09:00)
[2019-07-26] MEDS ORDERED: VALSARTAN 80 MG TAB PO ONE (11:33)
--- NOTE | 2019-07-26 14:29 | Hospitalist Progress Note ---
Date of Service July 26, 2019 Assessment & Plan (1) Atrial fibrillation: Pt is 64 y/o M with PMH A-fib s/p cardioversion in 01/2019, HTN, HLD, obesity presented to ER with c/o fatigue, exertional SOB, weakness x 2 days with worsening symptoms this morning. Reports home case monitor and showed his HR 170's and came to ER In ER given Lopressor 5mg IV, Heparin bolus and drip started Appreciate cardiology input and recommendation Status post transesophageal cardioversion Has been started on oral sotalol CHADSVASC: 1 for HTN Will need to stay for 3 days Has been started on Eliquis 5 mg p.o. twice daily and heparin will be stopped (2) Hypertension: Pt reports no longer taking HCTZ -BP Stable -Continue valsartan with a dose of 160 mg daily -Metoprolol changes as above with sotalol -Blood pressure is still remains on the upper side (3) HLD (hyperlipidemia): Current diet controlled -Lipid panel in am DVT Prophylaxis -On Heparin Drip currently Follows with Dr Archer for routine care Subjective 07/26 The patient was seen and examined in the telemetry unit He is a status post transesophageal cardioversion Remains in sinus rhythm without any symptoms Has been on sotalol and will need to stay for 72 hours Review of Systems Review of Systems: All systems reviewed and are unremarkable except as noted below Cardiovascular: no chest pain, no chest pain at rest, no dyspnea, no dyspnea on exertion, no orthopnea and no palpitations Physical Exam Physical Exam: Ambulating without any difficulty Constitutional: well developed and well nourished; no acute distress and not ill appearing Eyes: PERRL, conjunctivae normal, anicteric sclerae ENMT: external ear and nose normal, oropharynx normal Neck: trachea midline, no thyromegaly Respiratory: normal respiratory effort; no respiratory distress Auscultatio n: lungs clear to auscultation bilaterally Cardiovascular: Rate/Rhythm: regular rate and regular rhythm Heart Sounds: no murmur Gastrointestinal (Abdomen): Inspection/Auscultation: abdomen normal to inspection and normal bowel sounds Musculoskeletal: No acute arthritis in any joints Neurologic: Alert, awake and oriented x3 Lymphatic: no cervical or axillary lymphadenopathy Results & Data Vital Signs (Past 12 Hours) Vital Signs Temp Pulse Pulse Pulse Resp BP Pulse Ox 07/26/19 11:49 36.6 C 72 18 149/89 H 96 07/26/19 07:23 36.5 C 76 18 152/90 H 96 07/26/19 03:44 65 07/26/19 03:11 37.0 C 76 18 151/91 H 97 Pulse Ox 07/26/19 11:49 07/26/19 07:23 07/26/19 03:44 96 07/26/19 03:11 Laboratory Results Short CBC 07/26/19 Range/Units 02:56 WBC 7.10 (4.8-10.8) K/uL Hgb 14.9 (14.0-18.0) g/dL Hct 43.9 (42-52) % Plt Count 156 (130-400) K/uL BMP 07/26/19 02:56 Sodium 140 Potassium 4.1 Chloride 108 H Carbon Dioxide 29 BUN 11 Creatinine 0.84 Glucose 114 H Calcium 8.8 Cardiac Enzymes 07/25/19 Range/Units 15:14 Troponin I < 0.015 (0-0.045) ng/ml Medications Administered Current Inpatient Medications Acetaminophen (Tylenol) 650 mg PO Q4H PRN PRN Reason: Pain or Fever Stop: 08/24/19 11:44 Apixaban (Eliquis) 5 mg PO BID [facility] Stop: 08/25/19 20:59 Heparin Sodium/Dextrose (Heparin Sodium/Dextrose) 25,000 units in 500 mls @ 44 mls/hr IV .[id number] [facility]; Protocol Stop: 07/26/19 20:59 Last Admin: 07/26/19 12:39 Dose: 2,200 units/hr, 44 mls/hr Documented by: Miscellaneous (Stop Order) 1 ea N/A TODAY@2058 [facility] Stop: 07/26/19 21:00 Multivitamins (Multivitamin Tab) 1 tab PO QAM [facility] Stop: 08/25/19 08:59 Last Admin: 07/26/19 08:08 Dose: 1 tab Documented by: Sotalol HCl (Betapace) 80 mg PO BID [facility] Stop: 08/24/19 20:59 Last Admin: 07/26/19 08:08 Dose: 80 mg Documented by: Valsartan (Diovan) 160 mg PO DAILY [facility] Stop: 08/26/19 08:59 (1) Hypertension Hypertension type: unspecified Qualified Code(s): I10 - Essential (primary) hypertension
--- NOTE | 2019-07-26 16:24 | Cardiology Progress Note ---
Date of Service July 26, 2019 Assessment & Plan (1) Atrial fibrillation with rapid ventricular response: Status post successful DEMARIO guided cardioversion with conversion to normal sinus rhythm Tolerating sotalol administration at this time. No significant ventricular arrhythmias or ectopy on telemetry monitoring and his QTC is stable I will transition his heparin to Eliquis 5 mg p.o. twice daily today for at least 30 days worth of anticoagulation He will remain on telemetry monitoring for total of 6 doses of sotalol as previously discussed. (2) Hypertension: Elevated today after his metoprolol was discontinued in favor of sotalol, not unexpected We will increase valsartan 160 mg daily (3) TRISH (obstructive sleep apnea): Unremarkable nocturnal pulse ox Does have formal sleep study scheduled as an outpatient however given the above findings that likely will not be required Subjective Patient seen and examined with at bedside. States he feels well. He has no complaints from a cardiac standpoint and specifically denies any chest pain, shortness of breath, palpitations, lightheadedness, dizziness or syncope. Telemetry reviewed: Normal sinus rhythm without arrhythmia or significant ventricular ectopy Twelve-lead EKG performed today: Normal sinus rhythm with a QTC stable at 435 ms Review of Systems Review of Systems: All systems reviewed & are unremarkable except as noted in HPI & below Physical Exam Physical Exam: Physical Exam: General: Awake, alert and oriented x 3. No acute distress. HEENT: Normocephalic, atraumatic. Pupils equal, round and reactive to light and accommodation. Extraocular muscles are intact. Anicteric sclera. Moist mucous membranes. Neck: No JVD. No bruit. Cardiovascular: Regular. No S-4. Normal S-1 and S-2. No S-3. No murmurs, rubs or gallops. Pulmonary: Clear to auscultation bilaterally. No rales, rhonchi, or wheezing. Abdomen: Bowel sounds x 4, soft. No rebound, guarding or tenderness. No organ omegaly. Extremities: No clubbing, cyanosis or edema. +2 pedal pulses bilaterally. Skin: Warm and dry. Results & Data Vital Signs (Past 12 Hours) Vital Signs Temp Pulse Pulse Resp BP Pulse Ox 07/26/19 15:03 37.1 C 76 20 128/84 94 07/26/19 11:49 36.6 C 72 18 149/89 H 96 07/26/19 07:23 36.5 C 76 18 152/90 H 96 (1) Hypertension Hypertension type: unspecified Qualified Code(s): I10 - Essential (primary) hypertension
[2019-07-26] MEDS: APIXABAN 5 MG TABLET PO SCH (19:54)
[2019-07-27 07:18] LABS: Basophils # (auto) 0.01 K/uL (0-0.2); Basophils % (auto) 0.2 %; Eosinophils # (auto) 0.12 K/uL (0-0.5); Eosinophils % (auto) 2.4 %; Hematocrit (blood only) 43.8 % (42-52); Hemoglobin 14.8 g/dL (14.0-18.0); Immature Granulocytes # (auto) 0.02 K/uL (0.00-0.02); Immature Granulocytes % (auto) 0.4 %; Lymphocytes # (auto) 1.17 K/uL (1.2-3.4); Lymphocytes % (auto) 23.6 %; Mean Corpuscular Hgb Conc 33.8 g/dL (32-36); Mean Corpuscular Volume 85.9 fL (80-100); Mean Platelet Volume 9.9 fL (7.4-10.4); Monocytes # (auto) 0.45 K/uL (0.11-0.59); Monocytes % (auto) 9.1 %; Neutrophils # (auto) 3.18 K/uL (1.4-6.5); Neutrophils % (auto) 64.3 %; Platelet Count 138 K/uL (130-400); RDW Coefficient of Variation 14.2 % (11.5-14.5); RDW Standard Deviation 43.7 fL (36.4-46.3); White Blood Count 4.95 K/uL (4.8-10.8)
[2019-07-27 07:56] LABS: BUN Creatinine Ratio 13.8 (10-20); Calcium 9.2 mg/dl (8.5-10.1); Creatinine Clr Calc Pharmacy 121.5 ml/min; Est GFR (Non-African American) 92.3; Magnesium 2.1 mg/dl (1.8-2.4); Potassium 3.8 mmol/L (3.5-5.1)
[2019-07-27] MEDS: SOTALOL HCL 80 MG TAB PO SCH ×2 (07:56→19:59)
[2019-07-27] MEDS: VALSARTAN 80 MG TAB PO SCH (07:56)
[2019-07-27] MEDS: MULTIVITAMIN TAB PO SCH (07:56)
[2019-07-27] MEDS: APIXABAN 5 MG TABLET PO SCH ×2 (07:56→19:59)
[2019-07-27] MEDS ORDERED: hydroCHLOROthiazide 25 MG TAB PO STA (11:11)
--- NOTE | 2019-07-27 11:16 | Cardiology Progress Note ---
Date of Service July 27, 2019 Assessment & Plan (1) Atrial fibrillation with rapid ventricular response: (2) Hypertension: (3) TRISH (obstructive sleep apnea): The patient has received 4 doses of sotalol. By tomorrow morning he should have received 6 and be able to be discharged provided his rhythm remained stable. He is hypertensive and I have added hydrochlorothiazide to his valsartan. I will reassess his blood pressure tomorrow. He had a pulse oximeter overnight which failed to show significant desaturation. He was to have a full sleep study completed in August. Patient will be reassessed after discharg. Subjective No complaints today. Patient is tolerating his sotalol. He is maintaining sinus rhythm. Review of Systems Review of Systems: All systems reviewed & are unremarkable except as noted in HPI & below Nothing additional to add. Physical Exam Physical Exam: General: no acute distress and stated age Head: normocephalic, no masses, lesions, tenderness or abnormalities Eyes: conjunctiva are pink and non-injected, sclera clear Neck: supple, no adenopathy, no bruits, normal jugular venous pulse, no hepatojugular reflux Chest: normal shape and normal respiratory effort Lungs: clear to auscultation and percussion Cardiac Exam: - regular rate & rhythm, no murmurs gallops or rubs - normal S1, normal S2 Pulses: 2(+) throughout Abdomen: abdomen soft, non-tender, no abnormal masses and no hepatosplenomegaly Musculoskeletal: no gait disturbance, no joint inflammation, no deforming arthritis Extremities: no edema and no cyanosis Neuro: grossly normal exam Results & Data Vital Signs (Past 12 Hours) Vital Signs Temp Pulse Pulse Resp BP Pulse Ox 07/27/19 07:52 37.1 C 77 20 151/88 H 98 07/27/19 03:49 36.4 C L 69 18 129/80 97 Laboratory Results Laboratory Results - last 24 hr 07/27/19 07/27/19 07/27/19 06:50 06:50 06:50 WBC 4.95 RBC 5.10 Hgb 14.8 Hct 43.8 MCV 85.9 MCH 29.0 MCHC 33.8 RDW Std Deviation 43.7 RDW Coeff of Shaq 14.2 Plt Count 138 MPV 9.9 Immature Gran % (Auto) 0.4 Neut % (Auto) 64.3 Lymph % (Auto) 23.6 [place] % (Auto) 9.1 Eos % (Auto) 2.4 Baso % (Auto) 0.2 Immature Gran # (Auto) 0.02 Neut # (Auto) 3.18 Lymph # (Auto) 1.17 L [place] # (Auto) 0.45 Eos # (Auto) 0.12 Baso # (Auto) 0.01 Sodium 140 Potassium 3.8 Chloride 107 Carbon Dioxide 29 Anion Gap 4.0 BUN 12 Creatinine 0.86 Est Cr Clr Drug Dosing 121.5 Est GFR ( Amer) 107.0 Est GFR (Non-Af Amer) 92.3 BUN/Creatinine Ratio 13.8 Glucose 102 H Calcium 9.2 Magnesium 2.1 Hepatitis C Ab Screen Neg Medications Administered Current Inpatient Medications Acetaminophen (Tylenol) 650 mg PO Q4H PRN PRN Reason: Pain or Fever Stop: 08/24/19 11:44 Apixaban (Eliquis) 5 mg PO BID [facility] Stop: 08/25/19 20:59 Last Admin: 07/27/19 07:56 Dose: 5 mg Documented by: Hydrochlorothiazide (Hctz) 12.5 mg PO NOW [facility] Stop: 07/27/19 11:12 Hydrochlorothiazide (Hctz) 12.5 mg PO QAM [facility] Stop: 08/27/19 08:59 Multivitamins (Multivitamin Tab) 1 tab PO QAM [facility] Stop: 08/25/19 08:59 Last Admin: 07/27/19 07:56 Dose: 1 tab Documented by: Sotalol HCl (Betapace) 80 mg PO BID [facility] Stop: 08/24/19 20:59 Last Admin: 07/27/19 07:56 Dose: 80 mg Documented by: Valsartan (Diovan) 160 mg PO DAILY [facility] Stop: 08/26/19 08:59 Last Admin: 07/27/19 07:56 Dose: 160 mg Documented by: (1) Hypertension Hypertension type: unspecified Qualified Code(s): I10 - Essential (primary) hypertension
--- NOTE | 2019-07-27 14:29 | Hospitalist Progress Note ---
Date of Service July 27, 2019 Assessment & Plan (1) Atrial fibrillation: Pt is 64 y/o M with PMH A-fib s/p cardioversion in 01/2019, HTN, HLD, obesity presented to ER with c/o fatigue, exertional SOB, weakness x 2 days with worsening symptoms this morning. Reports home playground monitor and showed his HR 170's and came to ER In ER given Lopressor 5mg IV, Heparin bolus and drip started Appreciate cardiology input and recommendation Status post transesophageal cardioversion Has been started on oral sotalol CHADSVASC: 1 for HTN Will need to stay for 3 days Has been started on Eliquis 5 mg p.o. twice daily and heparin will be stopped Remains stable and asymptomatic with normal sinus rhythm (2) Hypertension: Pt reports no longer taking HCTZ -BP Stable -Continue valsartan with a dose of 160 mg daily -Metoprolol changes as above with sotalol -Blood pressure is controlled Obstructive sleep apnea Nocturnal pulse oximetry has been negative for any desaturation Will ask for outpatient polysomnography (3) HLD (hyperlipidemia): Current diet controlled -Lipid panel in am DVT Prophylaxis -On Heparin Drip currently Follows with Dr Archer for routine care Subjective 07/26 The patient was seen and examined in the telemetry unit He is a status post transesophageal cardioversion Remains in sinus rhythm without any symptoms Has been on sotalol and will need to stay for 72 hours 07/27 The patient was seen and examined in telemetry unit He remains totally asymptomatic pvc monitor is not showing any arrhythmias and remains in sinus rhythm Review of Systems Review of Systems: All systems reviewed and are unremarkable except as noted below Physical Exam Physical Exam: Lying in bed comfortably Constitutional: well developed and well nourished; no acute distress and not ill appearing Eyes: PERRL, conjunctivae normal, anicteric sclerae ENMT: external ear and nose normal, oropharynx normal Neck: trachea midline, no thyromegaly Respiratory: normal respiratory effort; no respiratory distress Auscultation: lungs clear to auscultation bilaterally Cardiovascular: Rate/Rhythm: regular rate and regular rhythm Heart Sounds: no murmur Gastrointestinal (Abdomen): Inspection/Auscultation: abdomen normal to inspection and normal bowel sounds Lymphatic: no cervical or axillary lymphadenopathy Results & Data Vital Signs (Past 12 Hours) Vital Signs Temp Pulse Pulse Resp BP BP Pulse Ox 07/27/19 11:53 36.6 C 81 19 126/77 97 07/27/19 07:52 37.1 C 77 20 151/88 H 98 07/27/19 03:49 36.4 C L 69 18 129/80 97 Laboratory Results Short CBC 07/27/19 Range/Units 06:50 WBC 4.95 (4.8-10.8) K/uL Hgb 14.8 (14.0-18.0) g/dL Hct 43.8 (42-52) % Plt Count 138 (130-400) K/uL BMP 07/27/19 06:50 Sodium 140 Potassium 3.8 Chloride 107 Carbon Dioxide 29 BUN 12 Creatinine 0.86 Glucose 102 H Calcium 9.2 Medications Administered Current Inpatient Medications Acetaminophen (Tylenol) 650 mg PO Q4H PRN PRN Reason: Pain or Fever Stop: 08/24/19 11:44 Apixaban (Eliquis) 5 mg PO BID [facility] Stop: 08/25/19 20:59 Last Admin: 07/27/19 07:56 Dose: 5 mg Documented by: Hydrochlorothiazide (Hctz) 12.5 mg PO QAM [facility] Stop: 08/27/19 08:59 Multivitamins (Multivitamin Tab) 1 tab PO QAM [facility] Stop: 08/25/19 08:59 Last Admin: 07/27/19 07:56 Dose: 1 tab Documented by: Sotalol HCl (Betapace) 80 mg PO BID [facility] Stop: 08/24/19 20:59 Last Admin: 07/27/19 07:56 Dose: 80 mg Documented by: Valsartan (Diovan) 160 mg PO DAILY [facility] Stop: 08/26/19 08:59 Last Admin: 07/27/19 07:56 Dose: 160 mg Documented by: (1) Hypertension Hypertension type: unspecified Qualified Code(s): I10 - Essential (primary) hypertension
[2019-07-28 07:19] LABS: BUN Creatinine Ratio 14.5 (10-20); Calcium 9.4 mg/dl (8.5-10.1); Est GFR (Non-African American) 93.2; Magnesium 2.1 mg/dl (1.8-2.4); Potassium 3.9 mmol/L (3.5-5.1)
[2019-07-28] MEDS: VALSARTAN 80 MG TAB PO SCH (08:27)
[2019-07-28] MEDS: MULTIVITAMIN TAB PO SCH (08:27)
[2019-07-28] MEDS: SOTALOL HCL 80 MG TAB PO SCH (08:27)
[2019-07-28] MEDS: APIXABAN 5 MG TABLET PO SCH (08:28)
[2019-07-28] MEDS ORDERED: hydroCHLOROthiazide 25 MG TAB PO SCH (09:00)
--- NOTE | 2019-07-28 09:30 | Cardiology Progress Note ---
Date of Service July 28, 2019 Assessment & Plan (1) Atrial fibrillation with rapid ventricular response: (2) History of cardioversion: (3) Encounter for monitoring anti-arrhythmic therapy: The patient has maintained sinus rhythm since cardioversion. He is tolerating sotalol. He has an adequate QTC and at this point can be discharged to outpatient follow-up. I will arrange follow-up with our clinic. Results & Data Vital Signs (Past 12 Hours) Vital Signs Temp Pulse Resp BP BP Pulse Ox 07/28/19 07:09 36.5 C 72 20 146/95 H 95 07/28/19 03:31 36.5 C 65 16 113/72 98 07/28/19 00:07 37.1 C 70 20 129/83 97
--- NOTE | 2019-07-28 11:58 | Hospitalist Progress Note ---
Date of Service July 28, 2019 Assessment & Plan (1) Atrial fibrillation: Pt is 64 y/o M with PMH A-fib s/p cardioversion in 01/2019, HTN, HLD, obesity presented to ER with c/o fatigue, exertional SOB, weakness x 2 days with worsening symptoms this morning. Reports home court recording monitor and showed his HR 170's and came to ER In ER given Lopressor 5mg IV, Heparin bolus and drip started Appreciate cardiology input and recommendation Status post transesophageal cardioversion Has been started on oral sotalol CHADSVASC: 1 for HTN Will need to stay for 3 days Has been started on Eliquis 5 mg p.o. twice daily and heparin will be stopped Remains stable and asymptomatic with normal sinus rhythm Remains in sinus rhythm with controlled rate and without any symptoms Will be discharged home today (2) Hypertension: Pt reports no longer taking HCTZ -BP Stable -Continue valsartan with a dose of 160 mg daily -Metoprolol changes as above with sotalol -Blood pressure is controlled Obstructive sleep apnea Nocturnal pulse oximetry has been negative for any desaturation Will ask for outpatient polysomnography (3) HLD (hyperlipidemia): Current diet controlled -Lipid panel in am DVT Prophylaxis -On Heparin Drip currently Follows with Dr Archer for routine care Cardiology will have follow-up appointment scheduled Subjective 07/26 The patient was seen and examined in the telemetry unit He is a status post transesophageal cardioversion Remains in sinus rhythm without any symptoms Has been on sotalol and will need to stay for 72 hours 07/27 The patient was seen and examined in telemetry unit He remains totally asymptomatic court recording monitor is not showing any arrhythmias and remains in sinus rhythm 07/28 Patient was seen and examined in telemetry unit Remains asymptomatic He has been ambulating without any difficulty Monitor did not show any significant arrhythmias Review of Systems Review of Systems: All systems reviewed and are unremarkable except as noted below Physical Exam Constitutional: well developed and well nourished; no acute distress and not ill appearing Eyes: PERRL, conjunctivae normal, anicteric sclerae ENMT: external ear and nose normal, oropharynx normal Neck: trachea midline, no thyromegaly Respiratory: normal respiratory effort; no respiratory distress Auscultation: lungs clear to auscultation bilaterally Cardiovascular: Rate/Rhythm: regular rate and regular rhythm Heart Sounds: no murmur Gastrointestinal (Abdomen): Inspection/Auscultation: abdomen normal to inspection and normal bowel sounds Musculoskeletal: no cyanosis or clubbing, extremities motor strength 5/5 Neurologic: Alert, awake and oriented x3 Lymphatic: no cervical or axillary lymphadenopathy Results & Data Vital Signs (Past 12 Hours) Vital Signs Temp Pulse Pulse Resp BP BP Pulse Ox 07/28/19 10:56 36.8 C 70 20 126/83 97 07/28/19 07:09 36.5 C 72 20 146/95 H 95 07/28/19 03:31 36.5 C 65 16 113/72 98 07/28/19 00:07 37.1 C 70 20 129/83 97 Laboratory Results BMP 07/28/19 06:14 Sodium 141 Potassium 3.9 Chloride 105 Carbon Dioxide 31 BUN 12 Creatinine 0.84 Glucose 94 Calcium 9.4 Medications Administered Current Inpatient Medications Acetaminophen (Tylenol) 650 mg PO Q4H PRN PRN Reason: Pain or Fever Stop: 08/24/19 11:44 Apixaban (Eliquis) 5 mg PO BID [facility] Stop: 08/25/19 20:59 Last Admin: 07/28/19 08:28 Dose: 5 mg Documented by: Hydrochlorothiazide (Hctz) 12.5 mg PO QAM [facility] Stop: 08/27/19 08:59 Last Admin: 07/28/19 08:28 Dose: 12.5 mg Documented by: Multivitamins (Multivitamin Tab) 1 tab PO QAM [facility] Stop: 08/25/19 08:59 Last Admin: 07/28/19 08:27 Dose: 1 tab Documented by: Sotalol HCl (Betapace) 80 mg PO BID [facility] Stop: 08/24/19 20:59 Last Admin: 07/28/19 08:27 Dose: 80 mg Documented by: Valsartan (Diovan) 160 mg PO DAILY [facility] Stop: 08/26/19 08:59 Last Admin: 07/28/19 08:27 Dose: 160 mg Documented by: (1) Hypertension Hypertension type: unspecified Qualified Code(s): I10 - Essential (primary) hypertension
--- NOTE | 2019-07-29 08:41 | Discharge Summary ---
Date of Service July 29, 2019 Admission HPI Per Admitting Provider Pt is 64 y/o M with PMH A-fib s/p cardioversion in 01/2019, HTN, HLD, obesity presented to ER with c/o fatigue, exertional SOB x 2 days. Pt states 2 days ago started with SOB with exertion, fatigue, weakness, intermittent chest tightness. Noticed worsening symptoms this morning and reports has home alarm security or surveillance monitor and showed his HR 170's and came to ER. Pt reports this feels like his prior episode of A-fib. Denies palpitations, dizziness, syncope. He denies any missed medication doses of metoprolol or valsartan. Reports no longer on HCTZ. States takes aspirin 81mg daily for good health. Reports drank 3 alcoholic drinks in past 3-5 days. Drinks 1-2 cups coffee daily. Denies other medication use. Reports chronic mild BLE edema for years with no increased edema. Denies fever/chills, diaphoresis, N/V/D/C, [place], vision changes, neck pain, orthopnea, cough, sore throat, choking, otalgia, rhinorrhea, abdominal pain, paresthesias, rashes, urinary symptoms. Admission Exam Per Admitting Provider Physical Exam: General: no distress, obese Head: normocephalic, atraumatic Eyes: PERRL, EOM's intact, conjunctiva non-injected, anicteric ENT: normal inspection external ears, nose, mucous membranes moist Neck: supple, trachea midline, non-tender Lungs: clear, no respiratory distress, no wheezing/rhonchi/rales CV: irregularly irregular, rate 102, no murmur, no JVD, 1+pretibial edema Abd: normal BS, soft, non-tender Ext: no cyanosis, no calf tenderness Neuro: A&O x 3, no focal deficits noted, normal affect Skin: warm, dry Principal Diagnosis A. fib with RVR status post cardioversion and is on sotalol Discharge Exam Constitutional well developed and well nourished; no acute distress and not ill appearing Eyes PERRL, conjunctivae normal, anicteric sclerae ENMT external ear and nose normal, oropharynx normal Neck trachea midline, no thyromegaly Respiratory normal respiratory effort; no respiratory distress Auscultation: lungs clear to auscultation bilaterally Cardiovascular Rate/Rhythm: regular rate and regular rhythm Heart Sounds: no murmur Gastrointestinal (Abdomen) Inspection/Auscultation: abdomen normal to inspection and normal bowel sounds Musculoskeletal no cyanosis or clubbing, extremities motor strength 5/5 Lymphatic no cervical or axillary lymphadenopathy Discharge Data Allergies Allergy/AdvReac Type Severity Reaction Status Date / Time No Known Allergies Allergy Unknown Verified 07/25/19 08:06 Consultations 07/25/19 09:50 ED Decision to Admit Stat 07/25/19 11:45 Consult Cardiology Routine Procedures Performed Operation Date: 07/25/19 12:45 Actual Procedures p Cardioversion - DO cayla Bal Echo Transesophageal(Not Applicable) - DO cayla Bal Echo Color Flow - DO cayla Bal Echo Doppler Complete - Steffen Hdez DO Hospital Course (1) Atrial fibrillation: Pt is 64 y/o M with PMH A-fib s/p cardioversion in 01/2019, HTN, HLD, obesity presented to ER with c/o fatigue, exertional SOB, weakness x 2 days with worsening symptoms this morning. Reports home alarm security or surveillance monitor and showed his HR 170's and came to ER In ER given Lopressor 5mg IV, Heparin bolus and drip started Appreciate cardiology input and recommendation Status post transesophageal cardioversion Has been started on oral sotalol CHADSVASC: 1 for HTN Will need to stay for 3 days Has been started on Eliquis 5 mg p.o. twice daily and heparin will be stopped Remains stable and asymptomatic with normal sinus rhythm Remains in sinus rhythm with controlled rate and without any symptoms Will be discharged home today (2) Hypertension: Pt reports no longer taking HCTZ -BP Stable -Continue valsartan with a dose of 160 mg daily -Metoprolol changes as above with sotalol -Blood pressure is controlled Obstructive sleep apnea Nocturnal pulse oximetry has been negative for any desaturation Will ask for outpatient polysomnography (3) HLD (hyperlipidemia): Current diet controlled -Lipid panel in am DVT Prophylaxis -On Heparin Drip currently Follows with Dr Archer for routine care Cardiology will have follow-up appointment scheduled Total Time Total Time Spent Total Time Spent (In Minutes): 35 minutes Total Time Includes: Examination of the Patient, Discharge Planning, Medication Reconciliation and Communication With Other Providers Discharge Plan Discharge Items Patient Disposition: Home - Self-Care Reason For Visit: A-FIB Discharge Diagnosis: A. fib with RVR status post cardioversion and is on sotalol Condition on Discharge: Good Activity: Resume your previous activity Non-emergency contact: Primary Care Provider Call non-emergency contact if: you have any medication questions and your symptoms worsen Follow-up/Referrals: Christian Archer MD [Primary Care Provider] - 08/05/19 3:10 pm (Cardiology will call with an appointment) Diet: Heart Healthy Addtl Attending Provider Instructions: Please take your medications regularly Pending Studies at Discharge: No Stand-Alone Forms: My [facility] [employer], Smoking Cessation Medications and DC Order Prescriptions: New Eliquis 5 mg Tablet 5 mg PO BID Qty: 60 RF: 0 sotalol 80 mg Tablet 80 mg PO BID 30 Days Qty: 60 RF: 0 hydrochlorothiazide 25 mg Tablet 12.5 mg PO QAM 30 Days Qty: 15 RF: 0 Continued multivitamin Tablet 1 tab PO QAM RF: 0 aspirin [Aspirin Low Dose] 81 mg Tablet,Delayed Release (Dr/Ec) 81 mg PO DAILY RF: 0 Changed valsartan 80 mg tablet 160 mg PO DAILY Qty: 0 RF: 0 Discontinued metoprolol succinate 50 mg tablet extended release 24 hr 50 mg PO DAILY RF: 0 Discharge Orders: Discharge Order (Routine); Ordered 07/28/19 Ordered By: Aundrea Bryan Admission Data Admit Date/Time: 07/25/19 10:24 Attending Provider: Aundrea Bryan Admit Provider: Randy Pierre Primary Care Provider: Christian Archer Other Providers: Randy Pierre ; Steffen Hdez Other Interventions: Discharge Summary Assessment (RN) Last Done: 07/28/19 12:42 DC Date/Time DO NOT enter until pt leaves facility: 07/28/19 13:09
== END 2019-07-28 13:09 | disposition home or self-care (01) | DRG 310 ==
LOC: ED 07:19 → 2S 10:24 → SUATTDRO 10:24 → 2S 11:26